=== PATIENT | male | born 1960 | race Caucasian/White ===

== ENCOUNTER 2018-06-03 15:32 | Inpatient (IN) | payer BC ==
[~2018-06-03] VITALS: Ht 167.6 cm; Wt 79.8 kg
[2018-06-04 14:45] VITALS: BP 151/92; PULSE 112; RESP 20
[2018-06-04 15:02] VITALS: PULSE 114
--- NOTE | 2018-06-04 15:51 | HP ---
Date/Time of Note Date/Time of Note DATE: 06/04/18 TIME: 15:36 Assessment/Plan VTE Prophylaxis Pharmacological prophylaxis: heparin Assessment/Plan Hospital Course 57 yo male with h/o diastolic CHF, hypertension, obesity who was admitted to [facility] 05/04/18 for acute respiratory failure 2/2 pneumonia and acute diastolic CHF. He had prolonged ICU course with intubation and requir ed tracheostomy. He has been transferred to [facility] now for swallow evaluation and consideration of possible PEG tube Acute respiratory failure: - s/p intubation and tracheostomy - Wean O2 as needed - Consult Dr Lopez who was following at [facility] Dysphagia: - NG tube feeds for now - Swallow eval - possible PEG Diastolic CHF: - Continue lasix 20 mg IV daily Hypertension: - Continue amlodipine 5 mg daily, Toprol 25 daily. Monitor and titrate BP meds Pneumonia: - Seems to have completed course of antibiotics, will hold further abx and monitor Full code Discharge plan pending HPI/ROS Admit Date/Time Admit Date/Time Jun 04, 2018 at 14:09 Hx of Present Illness 57 yo male with h/o diastolic CHF, MAC/OHS, hypertension who is transferred from [facility] for management of respiratory failure He was admitted there on 05/04 with respiratory failure requriing intubation. From documentation provided it seemst his was due to combination of congestive heart failure as well as pneumoina. He completed a course of vancomycin and aztreonam and underwent diuresis. TTE showed EF 55%. He eventually required tracheostomy. He has been stable off the venitlator since then and is now on trach collar. He has not passed swallow evaluation. He has been transferred here now for consideration of possible PEG placement and further speech therapy Seen on the floor by me after arrival. he is comfortable without complaints PMH/Family/Social Past Medical History OHS/MAC Diastolic CHF Hypertension Past Surgical History Past Surgical Hx: no surgical history Family History Significant Family History: no pertinent family hx Social History Alcohol Use: none Smoking Status: Never smoker Drug Use: none Exam/Review of Systems Vital Signs Vitals Vital Signs Date Temp Pulse Resp B/P (MAP) Pulse Ox O2 O2 Flow FiO2 Time Delivery Rate 06/04/18 114 15:02 06/04/18 99.5 20 151/92 95 Trach 10.0 14:45 (111) Collar Exam Exam Well appearing in NAD Alet, ortiented Trach in place, on trach collar O2 RRR Clear lungs Abdomen soft nt nd, obese Ext withotu edema PENG PRESSLEY MD Jun 04, 2018 15:50
[2018-06-04] MEDS ORDERED: ONDANSETRON 4 MG INJ IV PRN (16:00)
[2018-06-04] MEDS ORDERED: HYDROCODONE/APAP (5/325) TAB PO PRN (16:00)
[2018-06-04] MEDS ORDERED: NACL 0.9% 3 ML SYG IV SCH (16:00)
[2018-06-04] MEDS ORDERED: CLONIDINE 0.1 MG/24 HR PATCH TRANSDERM SCH (16:00)
[2018-06-04 16:02] VITALS: PULSE 116
[2018-06-04 18:40] VITALS: BP 148/88; PULSE 114; RESP 20
[2018-06-04 20:00] VITALS: BP 158/100; PULSE 114; PULSE 118; RESP 17
[2018-06-05] VITALS (15 sets, daily range): BP systolic 115–164; BP diastolic 64–106; PULSE 92–140; RESP 18–24
[2018-06-05] MEDS ORDERED: METOPROLOL 25 MG TAB ONE (04:08)
[2018-06-05] MEDS: METOPROLOL (XL) 25 MG TAB PO SCH (04:28)
[2018-06-05] MEDS: AMLODIPINE 5 MG TAB PO SCH (08:39)
[2018-06-05] MEDS: ENOXAPARIN 30 MG/0.3 ML SYG SC SCH (08:42)
[2018-06-05] MEDS: FUROSEMIDE 20 MG INJ IV SCH ×2 (10:38→17:36)
[2018-06-05] MEDS ORDERED: LORAZEPAM 2 MG INJ IV PRN (11:30)
[2018-06-05] MEDS: CLONIDINE 0.1 MG/24 HR PATCH TRANSDERM SCH (12:55)
--- NOTE | 2018-06-05 13:05 | PN ---
Date/Time of Note Date/Time of Note DATE: 06/05/18 TIME: 13:03 Assessment/Plan VTE Prophylaxis Risk score (from Ns)>0 risk: 3 SCD applied (from Ns): Yes Pharmacological prophylaxis: heparin Lines/Catheters IV Catheter Type (from Nrsg): PICC Line Central line still needed: Yes Urinary Cath still in place: Yes Reason Cath still needed: urinary retention Assessment/Plan Hospital Course 57 yo male with h/o diastolic CHF, hypertension, obesity who was admitted to [facility] 05/04/18 for acute respiratory failure 2/2 pneumonia and acute diastolic CHF. He had prolonged ICU course with intubation and required tracheostomy. He has been transferred to [facility] now for swallow evaluation and consideration of possible PEG tube Acute respiratory failure: - s/p intubation and tracheostomy - Wean O2 as needed - Consult Dr Lopez who was following at [facility] - Pulmonary toilet Dysphagia: - NG tube feeds for now - Swallow eval - possible PEG Diastolic CHF: - Continue lasix 20 mg IV daily Hypertension: - Continue amlodipine 5 mg daily, Toprol 25 daily, clonidine patch 0.1 mg. Monitor and titrate BP meds Agitation: - Soft limb restraitns for now to avoid him pulling out trach, ativan PRN Pneumonia: - Has completed course of antibiotics, will hold further abx and monitor Full code Discharge plan pending Result Diagram: 06/05/18 0548 06/05/18 0534 Results 24hrs Laboratory Tests Test 06/04/18 15:59 06/05/18 05:34 06/05/18 05:48 White Blood Count 5.6 7.7 # Red Blood Count 5.52 5.39 Hemoglobin 14.6 14.4 Hematocrit 47.8 47.4 Mean Corpuscular Volume 86.6 87.9 Mean Corpuscular Hemoglobin 26.4 L 26.7 L Mean Corpuscular Hemoglobin Concent 30.5 L 30.4 L Red Cell Distribution Width 14.8 H 14.6 H Platelet Count 265 255 Mean Platelet Volume 10.2 11.0 H Immature Granulocytes % 0.400 0.400 Neutrophils % 69.7 74.2 Lymphocytes % 19.4 18.1 Monocytes % 8.4 6.5 Eosinophils % 1.2 0.4 Basophils % 0.9 0.4 Nucleated Red Blood Cells % 0.0 0.0 Immature Granulocytes # 0.020 0.030 Neutrophils # 3.9 5.7 Lymphocytes # 1.1 1.4 Monocytes # 0.5 0.5 Eosinophils # 0.1 0.0 Basophils # 0.1 0.0 Nucleated Red Blood Cells # 0.0 0.0 Sodium Level 149 H 148 H Potassium Level 3.9 4.1 Chloride Level 113 H 113 H Carbon Dioxide Level 28 28 Anion Gap 8 7 Blood Urea Nitrogen 29 H 33 H Creatinine 0.69 0.71 Est Glomerular Filtrat Rate mL/min > 60 > 60 Glucose Level 120 114 Calcium Level 10.0 10.0 Total Bilirubin 0.6 Direct Bilirubin 0.00 Indirect Bilirubin 0.6 Aspartate Amino Transf (AST/SGOT) 39 Alanine Aminotransferase (ALT/SGPT) 32 Alkaline Phosphatase 101 Total Protein 9.1 H Albumin 4.0 Globulin 5.10 H Albumin/Globulin Ratio 0.78 Hemoglobin A1c 5.9 Subjective 24 Hr Interval Summary Free Text/Dictation Patient a bit agitated, was pulling on trach, restraints applied Frequent secretions, heavy Exam/Review of Systems Exam Vitals Vital Signs Date Temp Pulse Resp B/P (MAP) Pulse Ox O2 O2 Flow FiO2 Time Delivery Rate 06/05/18 120 12:17 06/05/18 97.9 24 164/106 96 T Tube 11:18 (125) 06/05/18 10.0 08:00 06/05/18 40 07:05 Intake and Output 06/04/18 06/04/18 06/05/18 1515:00 23:00 07:00 IntakeIntake Total 80 ml OutputOutput Total 275 ml 450 ml BalanceBalance -275 ml -370 ml Exam A bit agitated but redirectable Trach, NG tube in place Gurgling secretions Tachy, regular Lungs rhoncorous Abd obese, soft ntd No edema Results Results 24hrs Laboratory Tests Test 06/04/18 15:59 06/05/18 05:34 06/05/18 05:48 White Blood Count 5.6 7.7 # Red Blood Count 5.52 5.39 Hemoglobin 14.6 14.4 Hematocrit 47.8 47.4 Mean Corpuscular Volume 86.6 87.9 Mean Corpuscular Hemoglobin 26.4 L 26.7 L Mean Corpuscular Hemoglobin Concent 30.5 L 30.4 L Red Cell Distribution Width 14.8 H 14.6 H Platelet Count 265 255 Mean Platelet Volume 10.2 11.0 H Immature Granulocytes % 0.400 0.400 Neutrophils % 69.7 74.2 Lymphocytes % 19.4 18.1 Monocytes % 8.4 6.5 Eosinophils % 1.2 0.4 Basophils % 0.9 0.4 Nucleated Red Blood Cells % 0.0 0.0 Immature Granulocytes # 0.020 0.030 Neutrophils # 3.9 5.7 Lymphocytes # 1.1 1.4 Monocytes # 0.5 0.5 Eosinophils # 0.1 0.0 Basophils # 0.1 0.0 Nucleated Red Blood Cells # 0.0 0.0 Sodium Level 149 H 148 H Potassium Level 3.9 4.1 Chloride Level 113 H 113 H Carbon Dioxide Level 28 28 Anion Gap 8 7 Blood Urea Nitrogen 29 H 33 H Creatinine 0.69 0.71 Est Glomerular Filtrat Rate mL/min > 60 > 60 Glucose Level 120 114 Calcium Level 10.0 10.0 Total Bilirubin 0.6 Direct Bilirubin 0.00 Indirect Bilirubin 0.6 Aspartate Amino Transf (AST/SGOT) 39 Alanine Aminotransferase (ALT/SGPT) 32 Alkaline Phosphatase 101 Total Protein 9.1 H Albumin 4.0 Globulin 5.10 H Albumin/Globulin Ratio 0.78 Hemoglobin A1c 5.9 Medications Medication Current Medications IV Flush (NS 3 ml) 3 ml PER PROTOCOL IV ; Start 06/04/18 at 16:00 Acetaminophen/ Hydrocodone Bitart ([place] (5/325)) 2 tab Q6H PRN PO .SEVERE PAIN 7-10 Last administered on 06/05/18 04:28; Admin Dose 2 TAB; Start 06/04/18 at 16:00 Enoxaparin Sodium (Lovenox) 30 mg DAILY SC Last administered on 06/05/18at 08:42; Admin Dose 30 MG; Start 06/05/18 at 09:00 Amlodipine Besylate (Norvasc) 5 mg DAILY PO Last administered on 06/05/18at 0 8:39; Admin Dose 5 MG; Start 06/05/18 at 09:00 Metoprolol Succinate (Toprol Xl) 25 mg DAILY PO Last administered on 06/05/18at 04:28; Admin Dose 25 MG; Start 06/05/18 at 09:00 Ondansetron HCl (Zofran Inj) 4 mg Q6H PRN IV NAUSEA AND/OR VOMITING; Start 06/04/18 at 16:00 Furosemide (Lasix) 20 mg BID DIURETICS IV Last administered on 06/05/18 10:38; Admin Dose 20 MG; Start 06/05/18 at 10:00 Clonidine HCl (Catapres-Tts 1 Patch) 1 patch Q7D TRANSDERM Last administered on 06/05/18 12:55; Admin Dose 1 PATCH; Start 06/05/18 at 13:00 Lorazepam (Ativan) 1 mg Q8H PRN IV ANXIETY Last administered on 06/05/18 12:08; Admin Dose 1 MG; Start 06/05/18 at 11:30 PENG PRESSLEY MD Jun 05, 2018 13:05
--- NOTE | 2018-06-05 13:22 | CONS ---
Assessment/Plan Assessment/Plan Assessment/Plan (Daily) IMP: 1. Chronic Respiratory Failure s/p tracheotomy 2. History of Multilobar pneumonia --now with copious secretions 3. HFpEF 4. s/p AGUS 5. Encephalopathy--likely toxic-metabolic RECS: 1. Aggressive CPT/suctioning 2. Bronchodilators 3. Cont trach collar 4. ST eval; eventual PMV 5. Dietary consult 6. DVT prophylaxis Consultation Date/Type/Reason Admit Date/Time Jun 04, 2018 at 14:09 Date of Consultation: Jun 05, 2018 Type of Consult Pulm Date/Time of Note DATE: 06/05/18 TIME: 13:12 Hx of Present Illness Briefly, this is a 57-year-old male with h/o diastolic CHF, query MAC/OHS, hypertension who is transferred from [facility] for management of respiratory failure He was admitted there on 05/04 with respiratory failure though to be due to a multilobar pneumonia requring intubation. From documentation provided it seemst his was due to combination of congestive heart failure as well as pneumoina. He completed a course of vancomycin and aztreonam and underwent diuresis. TTE showed EF 55%. He eventually required tracheostomy this past Wednesday and has since transitioned to t-collar. Subjective hx not possible: pt non-verbal Past Medical History Medical History: congestive heart failure, high cholesterol, hypertension Medications Current Medications IV Flush (NS 3 ml) 3 ml PER PROTOCOL IV ; Start 06/04/18 at 16:00 Acetaminophen/ Hydrocodone Bitart ([place] (5/325)) 2 tab Q6H PRN PO .SEVERE PAIN 7-10 Last administered on 06/05/18at 04:28; Admin Dose 2 TAB; Start 06/04/18 at 16:00 Enoxaparin Sodium (Lovenox) 30 mg DAILY SC Last administered on 06/05/18at 08:42; Admin Dose 30 MG; Start 06/05/18 at 09:00 Amlodipine Besylate (Norvasc) 5 mg DAILY PO Last administered on 06/05/18at 08:39; Admin Dose 5 MG; Start 06/05/18 at 09:00 Metoprolol Succinate (Toprol Xl) 25 mg DAILY PO Last administered on 06/05/18at 04:28; Admin Dose 25 MG; Start 06/05/18 at 09:00 Ondansetron HCl (Zofran Inj) 4 mg Q6H PRN IV NAUSEA AND/OR VOMITING; Start 06/04/18 at 16:00 Furosemide (Lasix) 20 mg BID DIURETICS IV Last administered on 06/05/18at 10:38; Admin Dose 20 MG; Start 06/05/18 at 10:00 Clonidine HCl (Catapres-Tts 1 Patch) 1 patch Q7D TRANSDERM Last administered on 06/05/18at 12:55; Admin Dose 1 PATCH; Start 06/05/18 at 13:00 Lorazepam (Ativan) 1 mg Q8H PRN IV ANXIETY Last administered on 06/05/18at 12:08; Admin Dose 1 MG; Start 06/05/18 at 11:30 Allergies: Coded Allergies: Penicillins (Verified Allergy, Unknown, 06/04/18) Past Surgical History Tracheotomy Past Surgical Hx: no surgical history Family History Significant Family History: no pertinent family hx Social History Alcohol Use: none Smoking Status: Never smoker Drug Use: none Exam/Review of Systems Exam Vitals Vital Signs Date Temp Pulse Resp B/P (MAP) Pulse Ox O2 O2 Flow FiO2 Time Delivery Rate 06/05/18 120 12:17 06/05/18 97.9 24 164/106 96 T Tube 11:18 (125) 06/05/18 10.0 08:00 06/05/18 40 07:05 Intake and Output 06/04/18 06/04/18 06/05/18 1515:00 23:00 07:00 IntakeIntake Total 80 ml OutputOutput Total 275 ml 450 ml BalanceBalance -275 ml -370 ml Constitutional: non-verbal Head: normocephalic, atraumatic Eyes: nl conjunctiva, nl sclera ENMT: nl external ears & nose, mucosa pink and moist Neck: supple, non-tender, other (trach site clean ) Respiratory: congested cough, crackles/rales Cardiovascular: regular rate and rhythm Gastrointestinal: soft, nl liver, spleen, non-tender Musculoskeletal: nl extremities to inspection Extremities: normal pulses Neurological: confused, DTR's symmetric Results Result Diagram: 06/05/18 0548 06/05/18 0534 Results 24hrs Laboratory Tests Test 06/04/18 15:59 06/05/18 05:34 06/05/18 05:48 White Blood Count 5.6 7.7 # Red Blood Count 5.52 5.39 Hemoglobin 14.6 14.4 Hematocrit 47.8 47.4 Mean Corpuscular Volume 86.6 87.9 Mean Corpuscular Hemoglobin 26.4 L 26.7 L Mean Corpuscular Hemoglobin Concent 30.5 L 30.4 L Red Cell Distribution Width 14.8 H 14.6 H Platelet Count 265 255 Mean Platelet Volume 10.2 11.0 H Immature Granulocytes % 0.400 0.400 Neutrophils % 69.7 74.2 Lymphocytes % 19.4 18.1 Monocytes % 8.4 6.5 Eosinophils % 1.2 0.4 Basophils % 0.9 0.4 Nucleated Red Blood Cells % 0.0 0.0 Immature Granulocytes # 0.020 0.030 Neutrophils # 3.9 5.7 Lymphocytes # 1.1 1.4 Monocytes # 0.5 0.5 Eosinophils # 0.1 0.0 Basophils # 0.1 0.0 Nucleated Red Blood Cells # 0.0 0.0 Sodium Level 149 H 148 H Potassium Level 3.9 4.1 Chloride Level 113 H 113 H Carbon Dioxide Level 28 28 Anion Gap 8 7 Blood Urea Nitrogen 29 H 33 H Creatinine 0.69 0.71 Est Glomerular Filtrat Rate mL/min > 60 > 60 Glucose Level 120 114 Calcium Level 10.0 10.0 Total Bilirubin 0.6 Direct Bilirubin 0.00 Indirect Bilirubin 0.6 Aspartate Amino Transf (AST/SGOT) 39 Alanine Aminotransferase (ALT/SGPT) 32 Alkaline Phosphatase 101 Total Protein 9.1 H Albumin 4.0 Globulin 5.10 H Albumin/Globulin Ratio 0.78 Hemoglobin A1c 5.9 Medications Medication Current Medications IV Flush (NS 3 ml) 3 ml PER PROTOCOL IV ; Start 06/04/18 at 16:00 Acetaminophen/ Hydrocodone Bitart ([place] (5/325)) 2 tab Q6H PRN PO .SEVERE PAIN 7-10 Last administered on 06/05/18 04:28; Admin Dose 2 TAB; Start 06/04/18 at 16:00 Enoxaparin Sodium (Lovenox) 30 mg DAILY SC Last administered on 06/05/18 08:42; Admin Dose 30 MG; Start 06/05/18 at 09:00 Amlodipine Besylate (Norvasc) 5 mg DAILY PO Last administered on 06/05/18 08:39; Admin Dose 5 MG; Start 06/05/18 at 09:00 Metoprolol Succinate (Toprol Xl) 25 mg DAILY PO Last administered on 06/05/18 04:28; Admin Dose 25 MG; Start 06/05/18 at 09:00 Ondansetron HCl (Zofran Inj) 4 mg Q6H PRN IV NAUSEA AND/OR VOMITING; Start 06/04/18 at 16:00 Furosemide (Lasix) 20 mg BID DIURETICS IV Last administered on 06/05/18 10:38; Admin Dose 20 MG; Start 06/05/18 at 10:00 Clonidine HCl (Catapres-Tts 1 Patch) 1 patch Q7D TRANSDERM Last administered on 06/05/18 12:55; Admin Dose 1 PATCH; Start 06/05/18 at 13:00 Lorazepam (Ativan) 1 mg Q8H PRN IV ANXIETY Last administered on 06/05/18 12:08; Admin Dose 1 MG; Start 06/05/18 at 11:30 CHARLIE CORNELL MD Jun 05, 2018 13:22
--- NOTE | 2018-06-05 15:35 | RADRPT ---
Echocardiogram Report Patient Name: Jason KOEHLER ID: [id number] : 1960 (57y 11m)Study Date: 06/05/2018 12:48:48 PM Gender: MAccession #: [id number] Tech: Estevan Rushing [facility] Location: [facility] Ref.Physician: DAVID BURNS Height(Cm): BSA: Weight(Kg): Quality: Technically Difficult StudyOrder Physician: David Burns Account #: Procedures: Echocardiographic Report: Transthoracic echocardiogram with complete 2D, M-Mode, and doppler examination. Indications: Evaluate Left Ventricular function. Measurements: 2D/M Mode Doppler Measurement Value Normal Range Measurement Value Normal Range LVIDd 2D 3.7 [ 4.2 - 5.8 ] cm AV Peak Darion 0.9 [ 100.0 - 170.0 ] cm/sec LVIDs 2D 2.6 [ 2.5 - 4.0 ] cm AV Peak PG 4.0 [ 2.0 - 9.0 ] mmHg LVPWd 2D 1.1 [ 0.6 - 1.0 ] cm LVOT Peak Darion 0.6 [ 70.0 - 110.0 ] cm/sec IVSd 2D 1.1 [ 0.6 - 1.0 ] cm LVOT Peak PG 1.0 [ 2.0 - 6.0 ] mmHg IVS/LVPW 2D 0.9 ratio MV E Peak Darion 0.9 [ 60.0 - 130.0 ] cm/sec AoR Diam 2D 2.5 [ 2.6 - 3.4 ] cm MV A Peak Darion 0.4 [ 100.0 - 120.0 ] cm/sec LA/Ao 2D 1 ratio MV E/A 2.3 [ 0.8 - 1.5 ] ratio LA Dimen 2D 3.2 [ 3.0 - 4.0 ] cm MV Decel Time 70 [ 104 - 258 ] msec Lat E` Darion 0.1 [ 10.0 - 15.0 ] cm/sec Med E` Darion 0.1 cm/sec MV E/A 2.3 [ 0.8 - 1.5 ] ratio Findings: Left Ventricle: Normal left ventricular systolic function. Normal left ventricular cavity size. Normal left ventricular wall thickness. Mild concentric left ventricular hypertrophy. Ejection fraction is visually estimated at 55 %. Right Ventricle: Normal right ventricular size. Normal right ventricular systolic function. Left Atrium: The left atrium is normal in size. Right Atrium: The right atrium is normal in size. Mitral Valve: Normal appearance of the mitral valve. Trace mitral regurgitation. Aortic Valve: Normal appearance of the aortic valve. No aortic regurgitation. Tricuspid Valve: Normal appearance of the tricuspid valve. Unable to obtain RVSP due to minimal presence of tricuspid regurgitation. Pulmonic Valve: Normal pulmonic valve appearance. No evidence of pulmonic regurgitation. Pericardium: Normal pericardium with no significant pericardial effusion. Aorta: Normal aortic root. IVC: Normal size and normal respiratory collapse consistent with normal right atrial pressure. Conclusions: Normal left ventricular systolic function. Normal left ventricular cavity size. Normal left ventricular wall thickness. Mild concentric left ventricular hypertrophy. Ejection fraction is visually estimated at 55 %. Normal appearance of the mitral valve. Trace mitral regurgitation. Normal appearance of the tricuspid valve. Unable to obtain RVSP due to minimal presence of tricuspid regurgitation. Electronically Signed By: Can Gómez 2018-06-05 15:35:15 PST
[2018-06-06] VITALS (17 sets, daily range): BP systolic 101–148; BP diastolic 59–100; PULSE 87–124; RESP 18–21
[2018-06-06] MEDS: FUROSEMIDE 20 MG INJ IV SCH ×2 (06:11→18:27)
[2018-06-06] MEDS: AMLODIPINE 5 MG TAB PO SCH (08:27)
[2018-06-06] MEDS: METOPROLOL (XL) 25 MG TAB PO SCH (08:27)
[2018-06-06] MEDS: ENOXAPARIN 30 MG/0.3 ML SYG SC SCH (08:32)
--- NOTE | 2018-06-06 15:13 | PN ---
Date/Time of Note Date/Time of Note DATE: 06/06/18 TIME: 15:12 Assessment/Plan VTE Prophylaxis Risk score (from Ns)>0 risk: 3 Pharmacological prophylaxis: LMWH Lines/Catheters Urinary Cath still in place: No Assessment/Plan Hospital Course 57 yo male with h/o diastolic CHF, hypertension, obesity who was admitted to [facility] 05/04/18 for acute respiratory failure 2/2 pneumonia and acute diastolic CHF. He had prolonged ICU course with intubation and required tracheostomy. He has been transferred to [facility] now for swallow evaluation and consideration of possible PEG tube Acute respiratory failure: - s/p intubation and tracheostomy - Wean O2 as needed -Pulmonary consultation appreciated - Pulmonary toilet Dysphagia: - NG tube feeds for now - Swallow eval - possible PEG in the coming days Diastolic CHF: - Continue lasix 20 mg IV daily Hypertension: - Continue amlodipine 5 mg daily, Toprol 25 daily, clonidine patch 0.1 mg. Monitor and titrate BP meds Agitation: - Soft limb restraitns for now to avoid him pulling out trach atjason PRN Pneumonia: - Has completed course of antibiotics, will hold further abx and monitor Prophylaxis: Lovenox Result Diagram: 06/06/18 0532 06/06/18 0532 Results 24hrs Laboratory Tests Test 06/06/18 05:00 06/06/18 05:32 Blood Gas Specimen Source Blood arterial Arterial Blood Date Drawn 06/06/2018 5:00:55 AM Arterial Blood pH (Temp corrected) 7.439 Arterial Blood pCO2 (Temp correct) 42.3 Arterial Blood pO2 (Temp corrected) 99.1 Arterial Blood HCO3 28.0 H Arterial Blood Base Excess 3.4 H Arterial Blood Oxygen Saturation 97.1 Maikol Test ACCEPTAB Arterial Blood Gas Puncture Site Right Radial Arterial Blood Carboxyhemoglobin 1.1 Arterial Blood Methemoglobin 0.5 Blood Gas A-a O2 Differential 137.5 H Oxyhemoglobin Percent 95.5 Blood Gas Temperature 37.0 Blood Gas Modality TRACH COLLAR FiO2 40.0 Blood Gas Notified Whom MA Blood Gas Notified Time 06/06/2018 5:15:31 AM White Blood Count 9.7 # Red Blood Count 5.77 Hemoglobin 15.6 Hematocrit 50.6 Mean Corpuscular Volume 87.7 Mean Corpuscular Hemoglobin 27.0 L Mean Corpuscular Hemoglobin Concent 30.8 L Red Cell Distribution Width 15.0 H Platelet Count 284 Mean Platelet Volume 11.1 H Immature Granulocytes % 0.300 Neutrophils % 68.6 Lymphocytes % 23.5 Monocytes % 6.9 Eosinophils % 0.2 Basophils % 0.5 Nucleated Red Blood Cells % 0.0 Immature Granulocytes # 0.030 Neutrophils # 6.6 Lymphocytes # 2.3 Monocytes # 0.7 Eosinophils # 0.0 Basophils # 0.1 Nucleated Red Blood Cells # 0.0 Sodium Level 151 H Potassium Level 3.9 Chloride Level 109 Carbon Dioxide Level 32 H Anion Gap 10 Blood Urea Nitrogen 47 #H Creatinine 0.88 Est Glomerular Filtrat Rate mL/min > 60 Glucose Level 128 Calcium Level 10.2 Subjective 24 Hr Interval Summary Constitutional: disoriented Exam/Review of Systems Exam Vitals Vital Signs Date Temp Pulse Resp B/P (MAP) Pulse Ox O2 O2 Flow FiO2 Time Delivery Rate 06/06/18 101.2 114 20 112/79 96 Trach 13:53 (90) Collar 06/06/18 10.0 40 12:53 Intake and Output 06/05/18 06/05/18 06/06/18 1414:59 22:59 06:59 IntakeIntake Total 540 ml 590 ml OutputOutput Total 1400 ml BalanceBalance -860 ml 590 ml Psych: confusion Respiratory: clear to auscultation Cardiovascular: regular rate and rhythm Gastrointestinal: soft; No distended Musculoskeletal: nl extremities to inspection Results Results 24hrs Laboratory Tests Test 06/06/18 05:00 06/06/18 05:32 Blood Gas Specimen Source Blood arterial Arterial Blood Date Drawn 06/06/2018 5:00:55 AM Arterial Blood pH (Temp corrected) 7.439 Arterial Blood pCO2 (Temp correct) 42.3 Arterial Blood pO2 (Temp corrected) 99.1 Arterial Blood HCO3 28.0 H Arterial Blood Base Excess 3.4 H Arterial Blood Oxygen Saturation 97.1 Maikol Test ACCEPTAB Arterial Blood Gas Puncture Site Right Radial Arterial Blood Carboxyhemoglobin 1.1 Arterial Blood Methemoglobin 0.5 Blood Gas A-a O2 Differential 137.5 H Oxyhemoglobin Percent 95.5 Blood Gas Temperature 37.0 Blood Gas Modality TRACH COLLAR FiO2 40.0 Blood Gas Notified Whom MA Blood Gas Notified Time 06/06/2018 5:15:31 AM White Blood Count 9.7 # Red Blood Count 5.77 Hemoglobin 15.6 Hematocrit 50.6 Mean Corpuscular Volume 87.7 Mean Corpuscular Hemoglobin 27.0 L Mean Corpuscular Hemoglobin Concent 30.8 L Red Cell Distribution Width 15.0 H Platelet Count 284 Mean Platelet Volume 11.1 H Immature Granulocytes % 0.300 Neutrophils % 68.6 Lymphocytes % 23.5 Monocytes % 6.9 Eosinophils % 0.2 Basophils % 0.5 Nucleated Red Blood Cells % 0.0 Immature Granulocytes # 0.030 Neutrophils # 6.6 Lymphocytes # 2.3 Monocytes # 0.7 Eosinophils # 0.0 Basophils # 0.1 Nucleated Red Blood Cells # 0.0 Sodium Level 151 H Potassium Level 3.9 Chloride Level 109 Carbon Dioxide Level 32 H Anion Gap 10 Blood Urea Nitrogen 47 #H Creatinine 0.88 Est Glomerular Filtrat Rate mL/min > 60 Glucose Level 128 Calcium Level 10.2 Medications Medication Current Medications IV Flush (NS 3 ml) 3 ml PER PROTOCOL IV ; Start 06/04/18 at 16:00 Acetaminophen/ Hydrocodone Bitart ([place] (5/325)) 2 tab Q6H PRN PO .SEVERE PAIN 7-10 Last administered on 06/05/18at 04:28; Admin Dose 2 TAB; Start 06/04/18 at 16:00 Enoxaparin Sodium (Lovenox) 30 mg DAILY SC Last administered on 06/06/18at 0 8:32; Admin Dose 30 MG; Start 06/05/18 at 09:00 Amlodipine Besylate (Norvasc) 5 mg DAILY PO Last administered on 06/06/18 08:27; Admin Dose 5 MG; Start 06/05/18 at 09:00 Metoprolol Succinate (Toprol Xl) 25 mg DAILY PO Last administered on 06/06/18at 08:27; Admin Dose 25 MG; Start 06/05/18 at 09:00 Ondansetron HCl (Zofran Inj) 4 mg Q6H PRN IV NAUSEA AND/OR VOMITING; Start 06/04/18 at 16:00 Furosemide (Lasix) 20 mg BID DIURETICS IV Last administered on 06/06/18 06:11; Admin Dose 20 MG; Start 06/05/18 at 10:00 Clonidine HCl (Catapres-Tts 1 Patch) 1 patch Q7D TRANSDERM Last administered on 06/05/18at 12:55; Admin Dose 1 PATCH; Start 06/05/18 at 13:00 Lorazepam (Ativan) 1 mg Q8H PRN IV ANXIETY Last administered on 06/05/18at 12:08; Admin Dose 1 MG; Start 06/05/18 at 11:30 Levalbuterol (Xopenex Neb) 0.63 mg Q8H RESP THERAPY HHN ; Start 06/06/18 at 21:00 Acetaminophen (Tylenol Tab) 650 mg Q6H PRN PO MILD PAIN(1-3)OR ELEVATED TEMP; Start 06/06/18 at 14:50 LAUREANO STEARNS Jun 06, 2018 15:13
--- NOTE | 2018-06-06 15:43 | CONS ---
Consult Date/Type/Reason Admit Date/Time Jun 04, 2018 at 14:09 Initial Consult Date 06/05/18 Type of Consult Pulmonary Date/Time of Note DATE: 06/06/18 TIME: 15:30 Subjective Comfortable this morning. Moderate secretions requiring occasional pulmonary toilet. No respiratory distress at present Objective Vital Signs Date Temp Pulse Resp B/P (MAP) Pulse Ox O2 O2 Flow FiO2 Time Delivery Rate 06/06/18 101.2 114 20 112/79 96 Trach 13:53 (90) Collar 06/06/18 10.0 40 12:53 Intake and Output 06/05/18 06/05/18 06/06/18 1515:00 23:00 07:00 IntakeIntake Total 540 ml 590 ml OutputOutput Total 1400 ml BalanceBalance -860 ml 590 ml Exam GENERAL: Chronically ill-appearing gentleman comfortable at rest VITAL SIGNS: per chart NECK: Supple. No JVD or lymphadenopathy. Tracheostomy in place sutures in place CARDIAC EXAM: S1, S2. No added sounds or murmurs. CHEST: clear bilaterally, No added sounds, rales or wheezes ABDOMEN: Soft, nontender. No guarding or rebound. EXTREMITIES: No cyanosis, clubbing or edema. NEUROLOGIC: Generalized weakness. No focal deficits. Vent Setting Fraction of Inspired Oxygen pe: 40 Results/Medications Result Diagram: 06/06/1832 06/06/18 0532 Results 24 hrs Laboratory Tests Test 06/06/18 05:00 06/06/18 05:32 Blood Gas Specimen Source Blood arterial Arterial Blood Date Drawn 06/06/2018 5:00:55 AM Arterial Blood pH (Temp corrected) 7.439 Arterial Blood pCO2 (Temp correct) 42.3 Arterial Blood pO2 (Temp corrected) 99.1 Arterial Blood HCO3 28.0 H Arterial Blood Base Excess 3.4 H Arterial Blood Oxygen Saturation 97.1 Maikol Test ACCEPTAB Arterial Blood Gas Puncture Site Right Radial Arterial Blood Carboxyhemoglobin 1.1 Arterial Blood Methemoglobin 0.5 Blood Gas A-a O2 Differential 137.5 H Oxyhemoglobin Percent 95.5 Blood Gas Temperature 37.0 Blood Gas Modality TRACH COLLAR FiO2 40.0 Blood Gas Notified Whom MA Blood Gas Notified Time 06/06/2018 5:15:31 AM White Blood Count 9.7 # Red Blood Count 5.77 Hemoglobin 15.6 Hematocrit 50.6 Mean Corpuscular Volume 87.7 Mean Corpuscular Hemoglobin 27.0 L Mean Corpuscular Hemoglobin Concent 30.8 L Red Cell Distribution Width 15.0 H Platelet Count 284 Mean Platelet Volume 11.1 H Immature Granulocytes % 0.300 Neutrophils % 68.6 Lymphocytes % 23.5 Monocytes % 6.9 Eosinophils % 0.2 Basophils % 0.5 Nucleated Red Blood Cells % 0.0 Immature Granulocytes # 0.030 Neutrophils # 6.6 Lymphocytes # 2.3 Monocytes # 0.7 Eosinophils # 0.0 Basophils # 0.1 Nucleated Red Blood Cells # 0.0 Sodium Level 151 H Potassium Level 3.9 Chloride Level 109 Carbon Dioxide Level 32 H Anion Gap 10 Blood Urea Nitrogen 47 #H Creatinine 0.88 Est Glomerular Filtrat Rate mL/min > 60 Glucose Level 128 Calcium Level 10.2 Medications Current Medications IV Flush (NS 3 ml) 3 ml PER PROTOCOL IV ; Start 06/04/18 at 16:00 Acetaminophen/ Hydrocodone Bitart ([place] (5/325)) 2 tab Q6H PRN PO .SEVERE PAIN 7-10 Last administered on 06/05/18at 04:28; Admin Dose 2 TAB; Start 06/04/18 at 16:00 Enoxaparin Sodium (Lovenox) 30 mg DAILY SC Last administered on 06/06/18at 08:32; Admin Dose 30 MG; Start 06/05/18 at 09:00 Amlodipine Besylate (Norvasc) 5 mg DAILY PO Last administered on 06/06/18 08:27; Admin Dose 5 MG; Start 06/05/18 at 09:00 Metoprolol Succinate (Toprol Xl) 25 mg DAILY PO Last administered on 06/06/18 08:27; Admin Dose 25 MG; Start 06/05/18 at 09:00 Ondansetron HCl (Zofran Inj) 4 mg Q6H PRN IV NAUSEA AND/OR VOMITING; Start 06/04/18 at 16:00 Furosemide (Lasix) 20 mg BID DIURETICS IV Last administered on 06/06/18at 06:11; Admin Dose 20 MG; Start 06/05/18 at 10:00 Clonidine HCl (Catapres-Tts 1 Patch) 1 patch Q7D TRANSDERM Last administered on 06/05/18at 12:55; Admin Dose 1 PATCH; Start 06/05/18 at 13:00 Lorazepam (Ativan) 1 mg Q8H PRN IV ANXIETY Last administered on 06/05/18at 12:08; Admin Dose 1 MG; Start 06/05/18 at 11:30 Levalbuterol (Xopenex Neb) 0.63 mg Q8H RESP THERAPY HHN ; Start 06/06/18 at 21:00 Acetaminophen (Tylenol Tab) 650 mg Q6H PRN PO MILD PAIN(1-3)OR ELEVATED TEMP; Start 06/06/18 at 14:50 Dextrose 1,000 ml @ 50 mls/hr Q20H IV ; Start 06/06/18 at 15:30; Status UNV Assessment/Plan Hospital Course (Demo Recall) IMP: 1. Chronic Respiratory Failure s/p tracheotomy 2. History of Multilobar pneumonia --now with copious secretions 3. HFpEF 4. s/p AGUS 5. Encephalopathy--likely toxic-metabolic RECS: 1. Aggressive CPT/suctioning 2. Bronchodilators 3. Cont trach collar 4. ST eval; eventual PMV 5. Dietary consult 6. DVT prophylaxis 7. DC trach sutures [facility] HARMON MD, [facility] Jun 06, 2018 15:40
[2018-06-06] MEDS: DEXTROSE 5% 1,000 ML IV SCH (15:54)
[2018-06-06] MEDS ORDERED: LEVALBUTEROL (NEB) 0.63 MG/3 ML AMP HHN SCH (21:00)
[2018-06-06] MEDS: LEVALBUTEROL (NEB) 0.63 MG/3 ML AMP HHN SCH (23:56)
[2018-06-07] VITALS (16 sets, daily range): BP systolic 106–129; BP diastolic 64–79; PULSE 92–122; RESP 18–20
[2018-06-07] MEDS: ACETAMINOPHEN 325 MG TAB PO PRN (05:42)
[2018-06-07] MEDS: FUROSEMIDE 20 MG INJ IV SCH ×2 (05:43→18:00)
[2018-06-07] MEDS: LEVALBUTEROL (NEB) 0.63 MG/3 ML AMP HHN SCH ×2 (07:41→16:21)
[2018-06-07] MEDS: AMLODIPINE 5 MG TAB PO SCH (08:42)
[2018-06-07] MEDS: METOPROLOL (XL) 25 MG TAB PO SCH (08:42)
[2018-06-07] MEDS: ENOXAPARIN 30 MG/0.3 ML SYG SC SCH (08:43)
[2018-06-07] MEDS: DEXTROSE 5% 1,000 ML IV SCH (11:30)
--- NOTE | 2018-06-07 12:32 | CONS ---
Consult Date/Type/Reason Admit Date/Time Jun 04, 2018 at 14:09 Initial Consult Date 06/05/18 Type of Consult Pulmonary Date/Time of Note DATE: 06/07/18 TIME: 12:31 Subjective Comfortable no respiratory distress this morning. Nasogastric tube in place. Objective Vital Signs Date Temp Pulse Resp B/P (MAP) Pulse Ox O2 O2 Flow FiO2 Time Delivery Rate 06/07/18 99.4 108 20 118/72 97 Trach 11:29 (87) Collar 06/07/18 10.0 08:00 06/07/18 40 07:46 Intake and Output 06/06/18 06/06/18 06/07/18 1515:00 23:00 07:00 IntakeIntake Total 540 ml 1616 ml BalanceBalance 540 ml 1616 ml Exam GENERAL: VITAL SIGNS: per chart NECK: Supple. No JVD or lymphadenopathy. CARDIAC EXAM: S1, S2. No added sounds or murmurs. CHEST: clear bilaterally, No added sounds, rales or wheezes ABDOMEN: Soft, nontender. No guarding or rebound. EXTREMITIES: No cyanosis, clubbing or edema. NEUROLOGIC: Generalized weakness. No focal deficits. Vent Setting Fraction of Inspired Oxygen pe: 40 Results/Medications Result Diagram: 06/06/18 0532 06/07/18 0621 Results 24 hrs Laboratory Tests Test 06/07/18 06:21 Sodium Level 143 Potassium Level 3.4 L Chloride Level 105 Carbon Dioxide Level 31 Anion Gap 7 Blood Urea Nitrogen 54 H Creatinine 0.92 Est Glomerular Filtrat Rate mL/min > 60 Glucose Level 316 #H Calcium Level 9.1 Phosphorus Level 4.2 Magnesium Level 2.3 Medications Current Medications IV Flush (NS 3 ml) 3 ml PER PROTOCOL IV ; Start 06/04/18 at 16:00 Acetaminophen/ Hydrocodone Bitart ([place] (5/325)) 2 tab Q6H PRN PO .SEVERE PAIN 7-10 Last administered on 06/05/18at 04:28; Admin Dose 2 TAB; Start 06/04/18 at 16:00 Enoxaparin Sodium (Lovenox) 30 mg DAILY SC Last administered on 06/07/18at 08:4 3; Admin Dose 30 MG; Start 06/05/18 at 09:00 Amlodipine Besylate (Norvasc) 5 mg DAILY PO Last administered on 06/07/18at 08:42; Admin Dose 5 MG; Start 06/05/18 at 09:00 Metoprolol Succinate (Toprol Xl) 25 mg DAILY PO Last administered on 06/07/18 08:42; Admin Dose 25 MG; Start 06/05/18 at 09:00 Ondansetron HCl (Zofran Inj) 4 mg Q6H PRN IV NAUSEA AND/OR VOMITING; Start 06/04/18 at 16:00 Furosemide (Lasix) 20 mg BID DIURETICS IV Last administered on 06/07/18 05:43; Admin Dose 20 MG; Start 06/05/18 at 10:00 Clonidine HCl (Catapres-Tts 1 Patch) 1 patch Q7D TRANSDERM Last administered on 06/05/18 12:55; Admin Dose 1 PATCH; Start 06/05/18 at 13:00 Lorazepam (Ativan) 1 mg Q8H PRN IV ANXIETY Last administered on 06/05/18 12:08; Admin Dose 1 MG; Start 06/05/18 at 11:30 Acetaminophen (Tylenol Tab) 650 mg Q6H PRN PO MILD PAIN(1-3)OR ELEVATED TEMP Last administered on 06/07/18 05:42; Admin Dose 650 MG; Start 06/06/18 at 14:50 Levalbuterol (Xopenex Neb) 0.63 mg Q8H RESP THERAPY HHN Last administered on 06/07/18 07:41; Admin Dose 0.63 MG; Start 06/07/18 at 00:00 Assessment/Plan Hospital Course (Demo Recall) IMP: 1. Chronic Respiratory Failure s/p tracheotomy 2. History of Multilobar pneumonia --now with copious secretions 3. HFpEF 4. s/p AGUS 5. Encephalopathy--likely toxic-metabolic RECS: 1. Aggressive CPT/suctioning 2. Bronchodilators 3. Cont trach collar 4. ST eval; eventual PMV 5. Dietary consult 6. DVT prophylaxis 7. Will likely need PEG tube placement would proceed with PEG tube placement and consider [facility] to [facility] Jun 07, 2018 12:32
[2018-06-07] MEDS ORDERED: SCOPOLAMINE 1.5 MG PATCH TRANSDERM ONE (14:00)
--- NOTE | 2018-06-07 14:52 | PN ---
Date/Time of Note Date/Time of Note DATE: 06/07/18 TIME: 14:51 Assessment/Plan VTE Prophylaxis Risk score (from Ns)>0 risk: 5 SCD applied (from Ns): Yes Pharmacological prophylaxis: LMWH Lines/Catheters Urinary Cath still in place: No Assessment/Plan Hospital Course 57 yo male with h/o diastolic CHF, hypertension, obesity who was admitted to [facility] 05/04/18 for acute respiratory failure 2/2 pneumonia and acute diastolic CHF. He had prolonged ICU course with intubation and required tracheostomy. He has been transferred to [facility] now for swallow evaluation and consideration of possible PEG tube Acute respiratory failure: - s/p intubation and tracheostomy - Wean O2 as needed -Pulmonary consultation appreciated - Pulmonary toilet Dysphagia: - NG tube feeds for now - Swallow eval - GI consult obtained for PEG tube placement Diastolic CHF: - Continue lasix 20 mg IV daily Hypertension: - Continue amlodipine 5 mg daily, Toprol 25 daily, clonidine patch 0.1 mg. Monitor and titrate BP meds Agitation: Improved - Ativan PRN Pneumonia: - Has completed course of antibiotics, will hold further abx and monitor Prophylaxis: Lovenox Result Diagram: 06/06/18 0532 06/07/18 0621 Results 24hrs Laboratory Tests Test 06/07/18 06:21 Sodium Level 143 Potassium Level 3.4 L Chloride Level 105 Carbon Dioxide Level 31 Anion Gap 7 Blood Urea Nitrogen 54 H Creatinine 0.92 Est Glomerular Filtrat Rate mL/min > 60 Glucose Level 316 #H Calcium Level 9.1 Phosphorus Level 4.2 Magnesium Level 2.3 Subjective 24 Hr Interval Summary Constitutional: no complaints Exam/Review of Systems Exam Vitals Vital Signs Date Temp Pulse Resp B/P (MAP) Pulse Ox O2 O2 Flow FiO2 Time Delivery Rate 06/07/18 98.2 108 20 108/69 100 Trach 13:56 (82) Collar 06/07/18 8.0 40 12:30 Intake and Output 06/06/18 06/06/18 06/07/18 1414:59 22:59 06:59 IntakeIntake Total 540 ml 1616 ml BalanceBalance 540 ml 1616 ml Constitutional: alert, oriented Respiratory: clear to auscultation Cardiovascular: regular rate and rhythm Gastrointestinal: soft; No distended Musculoskeletal: nl extremities to inspection Results Results 24hrs Laboratory Tests Test 06/07/18 06:21 Sodium Level 143 Potassium Level 3.4 L Chloride Level 105 Carbon Dioxide Level 31 Anion Gap 7 Blood Urea Nitrogen 54 H Creatinine 0.92 Est Glomerular Filtrat Rate mL/min > 60 Glucose Level 316 #H Calcium Level 9.1 Phosphorus Level 4.2 Magnesium Level 2.3 Medications Medication Current Medications IV Flush (NS 3 ml) 3 ml PER PROTOCOL IV ; Start 06/04/18 at 16:00 Acetaminophen/ Hydrocodone Bitart ([place] (5/325)) 2 tab Q6H PRN PO .SEVERE PAIN 7-10 Last administered on 06/05/18 04:28; Admin Dose 2 TAB; Start 06/04/18 at 16:00 Enoxaparin Sodium (Lovenox) 30 mg DAILY SC Last administered on 06/07/18 08:43; Admin Dose 30 MG; Start 06/05/18 at 09:00 Amlodipine Besylate (Norvasc) 5 mg DAILY PO Last administered on 06/07/18 08: 42; Admin Dose 5 MG; Start 06/05/18 at 09:00 Metoprolol Succinate (Toprol Xl) 25 mg DAILY PO Last administered on 06/07/18 08:42; Admin Dose 25 MG; Start 06/05/18 at 09:00 Ondansetron HCl (Zofran Inj) 4 mg Q6H PRN IV NAUSEA AND/OR VOMITING; Start 06/04/18 at 16:00 Furosemide (Lasix) 20 mg BID DIURETICS IV Last administered on 06/07/18 05:43; Admin Dose 20 MG; Start 06/05/18 at 10:00 Clonidine HCl (Catapres-Tts 1 Patch) 1 patch Q7D TRANSDERM Last administered on 06/05/18 12:55; Admin Dose 1 PATCH; Start 06/05/18 at 13:00 Lorazepam (Ativan) 1 mg Q8H PRN IV ANXIETY Last administered on 06/05/18 12:08; Admin Dose 1 MG; Start 06/05/18 at 11:30 Acetaminophen (Tylenol Tab) 650 mg Q6H PRN PO MILD PAIN(1-3)OR ELEVATED TEMP Last administered on 06/07/18 05:42; Admin Dose 650 MG; Start 06/06/18 at 14:50 Levalbuterol (Xopenex Neb) 0.63 mg Q8H RESP THERAPY HHN Last administered on 06/07/18at 07:41; Admin Dose 0.63 MG; Start 06/07/18 at 00:00 LAUREANO STEARNS Jun 07, 2018 14:52
[2018-06-07] MEDS ORDERED: POTASSIUM CHLORIDE 20 MEQ POWDER FOR ORAL SOLN NGT ONE (15:30)
--- NOTE | 2018-06-07 16:55 | CONS ---
Assessment/Plan Assessment/Plan Assessment/Plan (Daily) Summary Assessment and Plan: Assessment: Dysphagia - evaluated by ST- failed bedside swallow eval Acute respiratory failure s/p tracheostomy- not on MV -Increased secretions -Pulmonary following Recent PNA- s/p antibiotic treatment Diastolic CHF- EF 55% HTN Plan: NPO after midnight PEG tomorrow- will check INR in am Endoscopy - risks/benefits/alternatives/indications of procedure and sedati on/anesthesia discussed with patient's family who states understanding and gives informed consent to proceed. Patient seen in collaboration with Dr. Haynes CC: DANIELA HAYNES MD ; Consultation Date/Type/Reason Admit Date/Time Jun 04, 2018 at 14:09 Date of Consultation: Jun 07, 2018 Type of Consult GI Reason for Consultation Dysphagia requiring PEG placement Date/Time of Note DATE: 06/07/18 TIME: 16:34 Hx of Present Illness This is a 57 year old male with PMH of CHF. He was initially hospitalized at [facility] for PNA and CHF exacerbation leading to respiratory failure and intubation. During his stay at [facility], he was treated with ABX and diuretics, however, they were unable to wean him off the ventilator there fore requiring tracheostomy. Pt was transferred to [facility] for ST therapy and possible PEG placement. ST evaluated pt who failed bedside swallow evaluation. GI has been consulted for PEG placement. At time of evaluation pt is alert and confused trach collar in place with notable secretions. I discussed procedure with patient family who is currently at bedside. I reviewed risks/benefits of sedation and procedure. Family verbalized understanding and are agreeable to procedure. Review of Systems: A 12 system, review was conducted and is negative except as noted in the HPI or here. Past Medical History Medical History: congestive heart failure, high cholesterol, hypertension Medications Current Medications IV Flush (NS 3 ml) 3 ml PER PROTOCOL IV ; Start 06/04/18 at 16:00 Acetaminophen/ Hydrocodone Bitart ([place] (5/325)) 2 tab Q6H PRN PO .SEVERE PAIN 7-10 Last administered on 06/05/18at 04:28; Admin Dose 2 TAB; Start 06/04/18 at 16:00 Enoxaparin Sodium (Lovenox) 30 mg DAILY SC Last administered on 06/07/18at 08:43; Admin Dose 30 MG; Start 06/05/18 at 09:00 Amlodipine Besylate (Norvasc) 5 mg DAILY PO Last administered on 06/07/18 08:42; Admin Dose 5 MG; Start 06/05/18 at 09:00 Metoprolol Succinate (Toprol Xl) 25 mg DAILY PO Last administered on 06/07/18 08:42; Admin Dose 25 MG; Start 06/05/18 at 09:00 Ondansetron HCl (Zofran Inj) 4 mg Q6H PRN IV NAUSEA AND/OR VOMITING; Start 06/04/18 at 16:00 Furosemide (Lasix) 20 mg BID DIURETICS IV Last administered on 06/07/18 05:43; Admin Dose 20 MG; Start 06/05/18 at 10:00 Clonidine HCl (Catapres-Tts 1 Patch) 1 patch Q7D TRANSDERM Last administered on 06/05/18 12:55; Admin Dose 1 PATCH; Start 06/05/18 at 13:00 Lorazepam (Ativan) 1 mg Q8H PRN IV ANXIETY Last administered on 06/05/18 12:08; Admin Dose 1 MG; Start 06/05/18 at 11:30 Acetaminophen (Tylenol Tab) 650 mg Q6H PRN PO MILD PAIN(1-3)OR ELEVATED TEMP Last administered on 06/07/18 05:42; Admin Dose 650 MG; Start 06/06/18 at 14:50 Levalbuterol (Xopenex Neb) 0.63 mg Q8H RESP THERAPY HHN Last administered on 06/07/18 16:21; Admin Dose 0.63 MG; Start 06/07/18 at 00:00 Allergies: Coded Allergies: Penicillins (Verified Allergy, Unknown, 06/04/18) Past Surgical History Past Surgical Hx: no surgical history Social History Alcohol Use: none Smoking Status: Never smoker Drug Use: none Exam/Review of Systems Exam Vitals Vital Signs Date Temp Pulse Resp B/P (MAP) Pulse Ox O2 O2 Flow FiO2 Time Delivery Rate 06/07/18 18 95 Aerosol 8.0 40 16:21 06/07/18 98.2 108 108/69 13:56 (82) Intake and Output 06/06/18 06/06/18 06/07/18 1515:00 23:00 07:00 IntakeIntake Total 540 ml 1616 ml BalanceBalance 540 ml 1616 ml PHYSICAL EXAMINATION: GENERAL: Well developed, well nourished, alert and confused, tracheostomy in place not on MV, restraints in place SKIN: No lesions, no stigmata chronic liver disease, no evidence of bleeding diathesis EYES: Pupils equal reactive to light, no discharge. EARS/NOSE AND THROAT: Ears normal, nose normal, NGT in place NECK: Supple, no masses CHEST: Inspection within normal limits. CARDIOVASCULAR: Heart: Regular rate and rhythm. RESPIRATORY: Lungs clear to auscultation GASTROINTESTINAL AND LIVER: Abdomen: Soft, non tenderness, non-distended, no hernias, no masses, no organomegaly, no ascites, no guarding, no rebound tenderness, normoactive bowel sounds. Rectal: Deferred. Results Result Diagram: 06/06/18 0532 06/07/18 0621 Results 24hrs Laboratory Tests Test 06/07/18 06:21 Sodium Level 143 Potassium Level 3.4 L Chloride Level 105 Carbon Dioxide Level 31 Anion Gap 7 Blood Urea Nitrogen 54 H Creatinine 0.92 Est Glomerular Filtrat Rate mL/min > 60 Glucose Level 316 #H Calcium Level 9.1 Phosphorus Level 4.2 Magnesium Level 2.3 Medications Medication Current Medications IV Flush (NS 3 ml) 3 ml PER PROTOCOL IV ; Start 06/04/18 at 16:00 Acetaminophen/ Hydrocodone Bitart ([place] (5/325)) 2 tab Q6H PRN PO .SEVERE PAIN 7-10 Last administered on 06/05/18at 04:28; Admin Dose 2 TAB; Start 06/04/18 at 16:00 Enoxaparin Sodium (Lovenox) 30 mg DAILY SC Last administered on 06/07/18at 08:43; Admin Dose 30 MG; Start 06/05/18 at 09:00 Amlodipine Besylate (Norvasc) 5 mg DAILY PO Last administered on 06/07/18at 08:42; Admin Dose 5 MG; Start 06/05/18 at 09:00 Metoprolol Succinate (Toprol Xl) 25 mg DAILY PO Last administered on 06/07/18at 08:42; Admin Dose 25 MG; Start 06/05/18 at 09:00 Ondansetron HCl (Zofran Inj) 4 mg Q6H PRN IV NAUSEA AND/OR VOMITING; Start 06/04/18 at 16:00 Furosemide (Lasix) 20 mg BID DIURETICS IV Last administered on 06/07/18 05:43; Admin Dose 20 MG; Start 06/05/18 at 10:00 Clonidine HCl (Catapres-Tts 1 Patch) 1 patch Q7D TRANSDERM Last administered on 06/05/18 12:55; Admin Dose 1 PATCH; Start 06/05/18 at 13:00 Lorazepam (Ativan) 1 mg Q8H PRN IV ANXIETY Last administered on 06/05/18 12:08; Admin Dose 1 MG; Start 06/05/18 at 11:30 Acetaminophen (Tylenol Tab) 650 mg Q6H PRN PO MILD PAIN(1-3)OR ELEVATED TEMP Last administered on 06/07/18 05:42; Admin Dose 650 MG; Start 06/06/18 at 14:50 Levalbuterol (Xopenex Neb) 0.63 mg Q8H RESP THERAPY HHN Last administered on 06/07/18 16:21; Admin Dose 0.63 MG; Start 06/07/18 at 00:00 ELYSE FABIAN Jun 07, 2018 16:49
--- NOTE | 2018-06-07 19:36 | CONS ---
Assessment/Plan Assessment/Plan Assessment/Plan 57 yo Male with 1) Acute respiratory failure, S/p trach 2) CHF- significantly improved 3) Hx of B/l PNA S/p Treatment 4) Hx of AGUS with Recovery 5) Pre Renal Azotemia Will hold diuretic Rx at this time CXR Reviewed Repeat labs in am Strict Is and Os monitor uo Monitor electrolytes Free H20 Supplementation after gtube placement cont current enteral nutrition and free H20 as per GI Will order PT eval and treatment Consultation Date/Type/Reason Admit Date/Time Jun 04, 2018 at 14:09 Type of Consult Nephrology Reason for Consultation Prerenal Azotemia, Hx of AGUS Requesting Provider: LAUREANO STEARNS Date/Time of Note DATE: 06/07/18 TIME: 19:32 Hx of Present Illness 57 yo Male with Constitutional: requiring O2 Past Medical History Medical History Nephrology: congestive heart failure, hypertension, renal disease Medications Current Medications IV Flush (NS 3 ml) 3 ml PER PROTOCOL IV ; Start 06/04/18 at 16:00 Acetaminophen/ Hydrocodone Bitart ([place] (5/325)) 2 tab Q6H PRN PO .SEVERE PAIN 7-10 Last administered on 06/05/18at 04:28; Admin Dose 2 TAB; Start 06/04/18 at 16:00 Enoxaparin Sodium (Lovenox) 30 mg DAILY SC Last administered on 06/07/18 08: 43; Admin Dose 30 MG; Start 06/05/18 at 09:00 Amlodipine Besylate (Norvasc) 5 mg DAILY PO Last administered on 06/07/18 08:42; Admin Dose 5 MG; Start 06/05/18 at 09:00 Metoprolol Succinate (Toprol Xl) 25 mg DAILY PO Last administered on 06/07/18 08:42; Admin Dose 25 MG; Start 06/05/18 at 09:00 Ondansetron HCl (Zofran Inj) 4 mg Q6H PRN IV NAUSEA AND/OR VOMITING; Start 06/04/18 at 16:00 Furosemide (Lasix) 20 mg BID DIURETICS IV Last administered on 06/07/18 05:43; Admin Dose 20 MG; Start 06/05/18 at 10:00 Clonidine HCl (Catapres-Tts 1 Patch) 1 patch Q7D TRANSDERM Last administered on 06/05/18at 12:55; Admin Dose 1 PATCH; Start 06/05/18 at 13:00 Lorazepam (Ativan) 1 mg Q8H PRN IV ANXIETY Last administered on 06/05/18at 12:08; Admin Dose 1 MG; Start 06/05/18 at 11:30 Acetaminophen (Tylenol Tab) 650 mg Q6H PRN PO MILD PAIN(1-3)OR ELEVATED TEMP Last administered on 06/07/18at 05:42; Admin Dose 650 MG; Start 06/06/18 at 14:50 Levalbuterol (Xopenex Neb) 0.63 mg Q8H RESP THERAPY HHN Last administered on 06/07/18at 16:21; Admin Dose 0.63 MG; Start 06/07/18 at 00:00 Allergies: Coded Allergies: Penicillins (Verified Allergy, Unknown, 06/04/18) Past Surgical History Past Surgical Hx: other (trach) Family History Significant Family History: no pertinent family hx Social History Alcohol Use: none Smoking Status: Never smoker Drug Use: none Exam/Review of Systems Vital Signs Vitals Vital Signs Date Temp Pulse Resp B/P (MAP) Pulse Ox O2 O2 Flow FiO2 Time Delivery Rate 06/07/18 20 94 Aerosol 8.0 40 18:11 Mask 06/07/18 98.8 92 107/64 18:01 (78) Intake and Output 06/06/18 06/06/18 06/07/18 1515:00 23:00 07:00 IntakeIntake Total 540 ml 1616 ml BalanceBalance 540 ml 1616 ml Exam Constitutional: No distress ENMT: mucosa pink and moist; No intubated Neck: other (Trace) Respiratory: clear to auscultation; No labored breathing Cardiovascular: regular rate and rhythm; No edema Gastrointestinal: soft, non-tender; No distended, No rebound or guarding Neurological: lethargic; No nl strength, No focal weakness Skin: nl turgor; No rash or lesions, No diaphoresis Labs Result Diagram: 06/06/18 0532 06/07/18 0621 Results 24hrs Laboratory Tests Test 06/07/18 06:21 Sodium Level 143 Potassium Level 3.4 L Chloride Level 105 Carbon Dioxide Level 31 Anion Gap 7 Blood Urea Nitrogen 54 H Creatinine 0.92 Est Glomerular Filtrat Rate mL/min > 60 Glucose Level 316 #H Calcium Level 9.1 Phosphorus Level 4.2 Magnesium Level 2.3 Imaging Imaging FINDINGS: The tracheostomy tube, nasogastric tube, and left arm PICC line remain in position, unchanged. Mild pulmonary edema and bibasilar atelectasis is also unchanged. The lungs are otherwise clear. The heart is mildly enlarged. There is no pleural effusion. There is no pneumothorax. IMPRESSION: 1. No change from the 06/04/2018 chest radiograph. RPTAT: QQ .jM Lee MD, MD Date Time Electronically viewed and signed by .Mj Lee MD, MD on 06/06/2018 09:51 Medications Medications Current Medications IV Flush (NS 3 ml) 3 ml PER PROTOCOL IV ; Start 06/04/18 at 16:00 Acetaminophen/ Hydrocodone Bitart ([place] (5/325)) 2 tab Q6H PRN PO .SEVERE PAIN 7-10 Last administered on 06/05/18at 04:28; Admin Dose 2 TAB; Start 06/04/18 at 16:00 Enoxaparin Sodium (Lovenox) 30 mg DAILY SC Last administered on 06/07/18 08:43; Admin Dose 30 MG; Start 06/05/18 at 09:00 Amlodipine Besylate (Norvasc) 5 mg DAILY PO Last administered on 06/07/18at 08:42; Admin Dose 5 MG; Start 06/05/18 at 09:00 Metoprolol Succinate (Toprol Xl) 25 mg DAILY PO Last administered on 06/07/18at 08:42; Admin Dose 25 MG; Start 06/05/18 at 09:00 Ondansetron HCl (Zofran Inj) 4 mg Q6H PRN IV NAUSEA AND/OR VOMITING; Start 06/04 at 16:00 Furosemide (Lasix) 20 mg BID DIURETICS IV Last administered on 06/07/18at 05:43; Admin Dose 20 MG; Start 06/05/18 at 10:00 Clonidine HCl (Catapres-Tts 1 Patch) 1 patch Q7D TRANSDERM Last administered on 06/05/18at 12:55; Admin Dose 1 PATCH; Start 06/05/18 at 13:00 Lorazepam (Ativan) 1 mg Q8H PRN IV ANXIETY Last administered on 06/05/18 12:08; Admin Dose 1 MG; Start 06/05/18 at 11:30 Acetaminophen (Tylenol Tab) 650 mg Q6H PRN PO MILD PAIN(1-3)OR ELEVATED TEMP Last administered on 06/07/18at 05:42; Admin Dose 650 MG; Start 06/06/18 at 14:50 Levalbuterol (Xopenex Neb) 0.63 mg Q8H RESP THERAPY HHN Last administered on 06/07/18at 16:21; Admin Dose 0.63 MG; Start 06/07/18 at 00:00 CHRIS SALAZAR MD Jun 07, 2018 19:36
[2018-06-08] VITALS (25 sets, daily range): BP systolic 86–136; BP diastolic 56–91; PULSE 85–114; RESP 12–28
[2018-06-08] MEDS: ACETAMINOPHEN 325 MG TAB PO PRN (00:26)
[2018-06-08] MEDS ORDERED: SOD CHLORIDE 0.45% 1,000 ML IV SCH ×2 (01:00→16:30)
[2018-06-08] MEDS: LEVALBUTEROL (NEB) 0.63 MG/3 ML AMP HHN SCH ×3 (02:16→16:37)
[2018-06-08] MEDS: METOPROLOL (XL) 25 MG TAB PO SCH ×2 (09:00→14:55)
[2018-06-08] MEDS: AMLODIPINE 5 MG TAB PO SCH ×2 (09:00→14:55)
--- NOTE | 2018-06-08 12:54 | PREAC ---
Date/Time of Note Date/Time of Note DATE: 06/08/18 TIME: 12:53 Anesthesia Eval and Record Evaluation Time Pre-Procedure Interview DATE: 06/08/18 TIME: 12:53 Age 57 Sex male NPO: 8 hrs Preoperative diagnosis dysphagia Planned procedure PEG Past Medical History Past Medical History: Includes Cardio: HTN, Dyslipidemia, DC, CAD, CHF Pulm: Other (resp failure) Musculoskeletal: Osteoarthritis Renal: AGUS GI: GERD Surgery & Anesthesia Issues No known issue Meds Anticoagulation: No Beta Nayana within 24 hr: No Reason Beta Nayana not given: Pt. not on B-Nayana Current Medications IV Flush (NS 3 ml) 3 ml PER PROTOCOL IV ; Start 06/04/18 at 16:00 Acetaminophen/ Hydrocodone Bitart ([place] (5/325)) 2 tab Q6H PRN PO .SEVERE PAIN 7-10 Last administered on 06/05/18 04:28; Admin Dose 2 TAB; Start 06/04/18 at 16:00 Amlodipine Besylate (Norvasc) 5 mg DAILY PO Last administered on 06/07/18 08:42; Admin Dose 5 MG; Start 06/05/18 at 09:00 Metoprolol Succinate (Toprol Xl) 25 mg DAILY PO Last administered on 06/07/18 08:42; Admin Dose 25 MG; Start 06/05/18 at 09:00 Ondansetron HCl (Zofran Inj) 4 mg Q6H PRN IV NAUSEA AND/OR VOMITING; Start 06/04/18 at 16:00 Clonidine HCl (Catapres-Tts 1 Patch) 1 patch Q7D TRANSDERM Last administered on 06/05/18 12:55; Admin Dose 1 PATCH; Start 06/05/18 at 13:00 Lorazepam (Ativan) 1 mg Q8H PRN IV ANXIETY Last administered on 06/05/18 12:08; Admin Dose 1 MG; Start 06/05/18 at 11:30 Acetaminophen (Tylenol Tab) 650 mg Q6H PRN PO MILD PAIN(1-3)OR ELEVATED TEMP Last administered on 06/08/18 00:26; Admin Dose 650 MG; Start 06/06/18 at 14:50 Levalbuterol (Xopenex Neb) 0.63 mg Q8H RESP THERAPY HHN Last administered on 2/13/19at 02:16; Admin Dose 0.63 MG; Start 06/07/18 at 00:00 Sodium Chloride 1,000 ml @ 40 mls/hr Q24H IV Last administered on 06/08/18at 01:00; Admin Dose 40 MLS/HR; Start 06/08/18 at 01:00 Meds reviewed: Yes Allergies Coded Allergies: Penicillins (Verified Allergy, Unknown, 06/04/18) Allergies Reviewed: Yes Labs/Studies Labs Reviewed: Reviewed by anesthesiologist Result Diagram: 06/08/18 0535 06/08/18 0535 Laboratory Tests 06/08/18 05:35 test: Negative Studies: ECG Pre-procedure Exam Last vitals Vital Signs Date Temp Pulse Resp B/P (MAP) Pulse Ox O2 O2 Flow FiO2 Time Delivery Rate 06/08/18 108 12:12 06/08/18 99.4 16 127/87 92 11:16 (100) 06/08/18 8.0 07:42 06/08/18 Aerosol 40 02:18 T Tube Airway: Adequate mouth opening, Adequate thyromental dist Mallampati: Mallampati II Teeth: Normal Lung: Normal Heart: Normal ASA Physical Status ASA physical status: 3 Emergency: None Planned Anesthetic General/MAC: Mask Pre-operative Attestations Prior to commencing anesthesia and surgery, the patient was re-evaluated, there was verification of: *The patient's identity *The results of appropriate recent lab work and preoperative vital signs *The above evaluation not changing prior to induction *Anesthetic plan, risk benefits, alternative and complications discussed with patient/family; questions answered; patient/family understands, accepts and wishes to proceed. JANESSA JONES Jun 08, 2018 12:54
[2018-06-08] MEDS ORDERED: PROPOFOL 20 ML ONE (13:00)
[2018-06-08] MEDS ORDERED: CEFAZOLIN 2 GM/50 ML (PMX) 50 ML IVPB ONE (13:04)
--- NOTE | 2018-06-08 13:27 | CONS ---
Assessment/Plan Assessment/Plan Assessment/Plan 57 yo Male with 1) Acute respiratory failure, S/p trach 2) CHF- significantly improved 3) Hx of B/l PNA S/p Treatment 4) Hx of AGUS with Recovery 5) Pre Renal Azotemia BUN Improved, Cr stable Will order gentle IVFs, D5W at 40ml x 1 L Cont to hold diuretic Rx at this time CXR Reviewed Repeat labs in am Strict Is and Os monitor UO Monitor electrolytes Free H20 Supplementation after gtube placement once cleared by GI Consultation Date/Type/Reason Admit Date/Time Jun 04, 2018 at 14:09 Type of Consult Nephrology Date/Time of Note DATE: 06/08/18 TIME: 13:26 Hx of Present Illness Down in GI lab for gtube placement Lasix held Exam/Review of Systems Vital Signs Vitals Vital Signs Date Temp Pulse Resp B/P (MAP) Pulse Ox O2 O2 Flow FiO2 Time Delivery Rate 06/08/18 108 12:12 06/08/18 99.4 16 127/87 92 11:16 (100) 06/08/18 8.0 07:42 06/08/18 Aerosol 40 02:18 T Tube Intake and Output 06/07/18 06/07/18 06/08/18 1515:00 23:00 07:00 IntakeIntake Total 225 ml 880 ml 535 ml BalanceBalance 225 ml 880 ml 535 ml Labs Result Diagram: 06/08/18 0535 06/08/18 0535 Results 24hrs Laboratory Tests Test 06/07/18 21:56 06/08/18 05:35 06/08/18 05:36 Hemoglobin 14.3 14.6 Hematocrit 48.2 48.2 White Blood Count 7.2 # Red Blood Count 5.48 Mean Corpuscular Volume 88.0 Mean Corpuscular Hemoglobin 26.6 L Mean Corpuscular Hemoglobin Concent 30.3 L Red Cell Distribution Width 15.1 H Platelet Count 197 # Mean Platelet Volume 11.7 H Immature Granulocytes % 0.300 Neutrophils % 59.6 Lymphocytes % 26.6 Monocytes % 8.7 Eosinophils % 4.1 Basophils % 0.7 Nucleated Red Blood Cells % 0.0 Immature Granulocytes # 0.020 Neutrophils # 4.3 Lymphocytes # 1.9 Monocytes # 0.6 Eosinophils # 0.3 Basophils # 0.1 Nucleated Red Blood Cells # 0.0 Sodium Level 149 H Potassium Level 4.1 Chloride Level 108 Carbon Dioxide Level 33 H Anion Gap 8 Blood Urea Nitrogen 50 H Creatinine 0.83 Est Glomerular Filtrat Rate mL/min > 60 Glucose Level 113 # Calcium Level 9.4 Phosphorus Level 4.1 Magnesium Level 2.5 Prothrombin Time 14.5 Prothrombin Time Ratio 1.1 INR International Normalized Ratio 1.12 Medications Medications Current Medications IV Flush (NS 3 ml) 3 ml PER PROTOCOL IV ; Start 06/04/18 at 16:00 Acetaminophen/ Hydrocodone Bitart ([place] (5/325)) 2 tab Q6H PRN PO .SEVERE PAIN 7-10 Last administered on 06/05/18 04:28; Admin Dose 2 TAB; Start 06/04/18 at 16:00 Amlodipine Besylate (Norvasc) 5 mg DAILY PO Last administered on 06/07/18 08:42; Admin Dose 5 MG; Start 06/05/18 at 09:00 Metoprolol Succinate (Toprol Xl) 25 mg DAILY PO Last administered on 06/07/18 08:42; Admin Dose 25 MG; Start 06/05/18 at 09:00 Ondansetron HCl (Zofran Inj) 4 mg Q6H PRN IV NAUSEA AND/OR VOMITING; Start 06/04/18 at 16:00 Clonidine HCl (Catapres-Tts 1 Patch) 1 patch Q7D TRANSDERM Last administered on 06/05/18 12:55; Admin Dose 1 PATCH; Start 06/05/18 at 13:00 Lorazepam (Ativan) 1 mg Q8H PRN IV ANXIETY Last administered on 06/05/18 12:08; Admin Dose 1 MG; Start 06/05/18 at 11:30 Acetaminophen (Tylenol Tab) 650 mg Q6H PRN PO MILD PAIN(1-3)OR ELEVATED TEMP Last administered on 06/08/18 00:26; Admin Dose 650 MG; Start 06/06/18 at 14:50 Levalbuterol (Xopenex Neb) 0.63 mg Q8H RESP THERAPY HHN Last administered on 06/08/18 02:16; Admin Dose 0.63 MG; Start 06/07/18 at 00:00 Sodium Chloride 1,000 ml @ 40 mls/hr Q24H IV Last administered on 06/08/18 0 1:00; Admin Dose 40 MLS/HR; Start 06/08/18 at 01:00 CHRIS SALAZAR MD Jun 08, 2018 13:27
[2018-06-08] MEDS ORDERED: DEXTROSE 5% 1,000 ML IV SCH (13:30)
--- NOTE | 2018-06-08 15:16 | CONS ---
Consult Date/Type/Reason Admit Date/Time Jun 04, 2018 at 14:09 Initial Consult Date 06/05/18 Type of Consult Pulmonary Requesting Provider: LAUREANO STEARNS Date/Time of Note DATE: 06/08/18 TIME: 15:15 Subjective Stable following PEG placement. Objective Vital Signs Date Temp Pulse Resp B/P (MAP) Pulse Ox O2 O2 Flow FiO2 Time Delivery Rate 06/08/18 98.4 98 22 136/91 96 Trach 14:47 (106) Collar 06/08/18 6.0 14:03 06/08/18 40 02:18 Intake and Output 06/07/18 06/07/18 06/08/18 1515:00 23:00 07:00 IntakeIntake Total 225 ml 880 ml 535 ml BalanceBalance 225 ml 880 ml 535 ml Exam GENERAL: trach peg. VITAL SIGNS: per chart NECK: Supple. No JVD or lymphadenopathy. CARDIAC EXAM: S1, S2. No added sounds or murmurs. CHEST: few rales. ABDOMEN: Soft, nontender. No guarding or rebound. EXTREMITIES: No cyanosis, clubbing or edema. NEUROLOGIC: Generalized weakness. No focal deficits. Vent Setting Fraction of Inspired Oxygen pe: 40 Results/Medications Result Diagram: 06/08/18 0535 06/08/18 0535 Results 24 hrs Laboratory Tests Test 06/07/18 21:56 06/08/18 05:35 06/08/18 05:36 Hemoglobin 14.3 14.6 Hematocrit 48.2 48.2 White Blood Count 7.2 # Red Blood Count 5.48 Mean Corpuscular Volume 88.0 Mean Corpuscular Hemoglobin 26.6 L Mean Corpuscular Hemoglobin Concent 30.3 L Red Cell Distribution Width 15.1 H Platelet Count 197 # Mean Platelet Volume 11.7 H Immature Granulocytes % 0.300 Neutrophils % 59.6 Lymphocytes % 26.6 Monocytes % 8.7 Eosinophils % 4.1 Basophils % 0.7 Nucleated Red Blood Cells % 0.0 Immature Granulocytes # 0.020 Neutrophils # 4.3 Lymphocytes # 1.9 Monocytes # 0.6 Eosinophils # 0.3 Basophils # 0.1 Nucleated Red Blood Cells # 0.0 Sodium Level 149 H Potassium Level 4.1 Chloride Level 108 Carbon Dioxide Level 33 H Anion Gap 8 Blood Urea Nitrogen 50 H Creatinine 0.83 Est Glomerular Filtrat Rate mL/min > 60 Glucose Level 113 # Calcium Level 9.4 Phosphorus Level 4.1 Magnesium Level 2.5 Prothrombin Time 14.5 Prothrombin Time Ratio 1.1 INR International Normalized Ratio 1.12 Medications Current Medications IV Flush (NS 3 ml) 3 ml PER PROTOCOL IV ; Start 06/04/18 at 16:00 Acetaminophen/ Hydrocodone Bitart ([place] (5/325)) 2 tab Q6H PRN PO .SEVERE PAIN 7-10 Last administered on 06/05/18 04:28; Admin Dose 2 TAB; Start 06/04/18 at 16:00 Amlodipine Besylate (Norvasc) 5 mg DAILY PO Last administered on 06/08/18 14:55; Admin Dose 5 MG; Start 06/05/18 at 09:00 Metoprolol Succinate (Toprol Xl) 25 mg DAILY PO Last administered on 06/08/18 14:55; Admin Dose 25 MG; Start 06/05/18 at 09:00 Ondansetron HCl (Zofran Inj) 4 mg Q6H PRN IV NAUSEA AND/OR VOMITING; Start 06/04/18 at 16:00 Clonidine HCl (Catapres-Tts 1 Patch) 1 patch Q7D TRANSDERM Last administered on 06/05/18 12:55; Admin Dose 1 PATCH; Start 06/05/18 at 13:00 Lorazepam (Ativan) 1 mg Q8H PRN IV ANXIETY Last administered on 06/05/18 12:08; Admin Dose 1 MG; Start 06/05/18 at 11:30 Acetaminophen (Tylenol Tab) 650 mg Q6H PRN PO MILD PAIN(1-3)OR ELEVATED TEMP Last administered on 06/08/18 00:26; Admin Dose 650 MG; Start 06/06/18 at 14:50 Levalbuterol (Xopenex Neb) 0.63 mg Q8H RESP THERAPY HHN Last administered on 06/08/18 02:16; Admin Dose 0.63 MG; Start 06/07/18 at 00:00 Sodium Chloride 1,000 ml @ 40 mls/hr Q24H IV Last administered on 06/08/18 01:00; Admin Dose 40 MLS/HR; Start 06/08/18 at 01:00 Dextrose 1,000 ml @ 40 mls/hr Q24H IV Last administered on 2/13/19at 14:55; Admin Dose 40 MLS/HR; Start 06/08/18 at 13:30; Stop 06/09/18 at 14:29 Assessment/Plan Hospital Course (Demo Recall) IMP: 1. Chronic Respiratory Failure s/p tracheotomy 2. History of Multilobar pneumonia --now with copious secretions 3. HFpEF 4. s/p AGUS 5. Encephalopathy--likely toxic-metabolic RECS: 1. Aggressive CPT/suctioning 2. Bronchodilators 3. Cont trach collar 4. ST eval; eventual PMV 5. Dietary consult 6. DVT prophylaxis 7. s/p PEG placement. Start TF transfer to SNF MARIO HARMON MD, [facility] Jun 08, 2018 15:16
--- NOTE | 2018-06-08 16:28 | PN ---
Date/Time of Note Date/Time of Note DATE: 06/08/18 TIME: 16:27 Assessment/Plan VTE Prophylaxis Risk score (from Ns)>0 risk: 7 SCD applied (from Ns): Yes Pharmacological prophylaxis: LMWH Lines/Catheters Urinary Cath still in place: No Assessment/Plan Hospital Course 57 yo male with h/o diastolic CHF, hypertension, obesity who was admitted to [facility] 05/04/18 for acute respiratory failure 2/2 pneumonia and acute diastolic CHF. He had prolonged ICU course with intubation and required tracheostomy. He has been transferred to [facility] now for swallow evaluation and consideration of possible PEG tube Acute respiratory failure: - s/p intubation and tracheostomy - Wean O2 as needed -Pulmonary consultation appreciated - Pulmonary toilet Dysphagia: -PEG tube placement today - Swallow eval Diastolic CHF: - Continue lasix 20 mg IV daily Hypertension: - Continue amlodipine 5 mg daily, Toprol 25 daily, clonidine patch 0.1 mg. Monitor and titrate BP meds Agitation: Improved - Ativan PRN Pneumonia: - Has completed course of antibiotics, will hold further abx and monitor Prophylaxis: Lovenox DC planning: DC to subacute tomorrow Result Diagram: 06/08/18 0535 06/08/18 0535 Results 24hrs Laboratory Tests Test 06/07/18 21:56 06/08/18 05:35 06/08/18 05:36 Hemoglobin 14.3 14.6 Hematocrit 48.2 48.2 White Blood Count 7.2 # Red Blood Count 5.48 Mean Corpuscular Volume 88.0 Mean Corpuscular Hemoglobin 26.6 L Mean Corpuscular Hemoglobin Concent 30.3 L Red Cell Distribution Width 15.1 H Platelet Count 197 # Mean Platelet Volume 11.7 H Immature Granulocytes % 0.300 Neutrophils % 59.6 Lymphocytes % 26.6 Monocytes % 8.7 Eosinophils % 4.1 Basophils % 0.7 Nucleated Red Blood Cells % 0.0 Immature Granulocytes # 0.020 Neutrophils # 4.3 Lymphocytes # 1.9 Monocytes # 0.6 Eosinophils # 0.3 Basophils # 0.1 Nucleated Red Blood Cells # 0.0 Sodium Level 149 H Potassium Level 4.1 Chloride Level 108 Carbon Dioxide Level 33 H Anion Gap 8 Blood Urea Nitrogen 50 H Creatinine 0.83 Est Glomerular Filtrat Rate mL/min > 60 Glucose Level 113 # Calcium Level 9.4 Phosphorus Level 4.1 Magnesium Level 2.5 Prothrombin Time 14.5 Prothrombin Time Ratio 1.1 INR International Normalized Ratio 1.12 Subjective 24 Hr Interval Summary Constitutional: no complaints Exam/Review of Systems Exam Vitals Vital Signs Date Temp Pulse Resp B/P (MAP) Pulse Ox O2 O2 Flow FiO2 Time Delivery Rate 06/08/18 97 16:14 06/08/18 98.5 16 136/85 97 15:24 (102) 06/08/18 Trach 14:47 Collar 06/08/18 6.0 14:03 06/08/18 40 02:18 Intake and Output 06/07/18 06/07/18 06/08/18 1515:00 23:00 07:00 IntakeIntake Total 225 ml 880 ml 535 ml BalanceBalance 225 ml 880 ml 535 ml Constitutional: alert Respiratory: clear to auscultation Cardiovascular: regular rate and rhythm Gastrointestinal: soft; No distended Musculoskeletal: nl extremities to inspection Results Results 24hrs Laboratory Tests Test 06/07/18 21:56 06/08/18 05:35 06/08/18 05:36 Hemoglobin 14.3 14.6 Hematocrit 48.2 48.2 White Blood Count 7.2 # Red Blood Count 5.48 Mean Corpuscular Volume 88.0 Mean Corpuscular Hemoglobin 26.6 L Mean Corpuscular Hemoglobin Concent 30.3 L Red Cell Distribution Width 15.1 H Platelet Count 197 # Mean Platelet Volume 11.7 H Immature Granulocytes % 0.300 Neutrophils % 59.6 Lymphocytes % 26.6 Monocytes % 8.7 Eosinophils % 4.1 Basophils % 0.7 Nucleated Red Blood Cells % 0.0 Immature Granulocytes # 0.020 Neutrophils # 4.3 Lymphocytes # 1.9 Monocytes # 0.6 Eosinophils # 0.3 Basophils # 0.1 Nucleated Red Blood Cells # 0.0 Sodium Level 149 H Potassium Level 4.1 Chloride Level 108 Carbon Dioxide Level 33 H Anion Gap 8 Blood Urea Nitrogen 50 H Creatinine 0.83 Est Glomerular Filtrat Rate mL/min > 60 Glucose Level 113 # Calcium Level 9.4 Phosphorus Level 4.1 Magnesium Level 2.5 Prothrombin Time 14.5 Prothrombin Time Ratio 1.1 INR International Normalized Ratio 1.12 Medications Medication Current Medications IV Flush (NS 3 ml) 3 ml PER PROTOCOL IV ; Start 06/04/18 at 16:00 Acetaminophen/ Hydrocodone Bitart ([place] (5/325)) 2 tab Q6H PRN PO .SEVERE PAIN 7-10 Last administered on 06/05/18 04:28; Admin Dose 2 TAB; Start 06/04/18 at 16:00 Amlodipine Besylate (Norvasc) 5 mg DAILY PO Last administered on 06/08/18 14:55; Admin Dose 5 MG; Start 06/05/18 at 09:00 Metoprolol Succinate (Toprol Xl) 25 mg DAILY PO Last administered on 06/08/18 14:55; Admin Dose 25 MG; Start 06/05/18 at 09:00 Ondansetron HCl (Zofran Inj) 4 mg Q6H PRN IV NAUSEA AND/OR VOMITING; Start 06/04/18 at 16:00 Clonidine HCl (Catapres-Tts 1 Patch) 1 patch Q7D TRANSDERM Last administered on 06/05/18 12:55; Admin Dose 1 PATCH; Start 06/05/18 at 13:00 Lorazepam (Ativan) 1 mg Q8H PRN IV ANXIETY Last administered on 06/05/18 12:08; Admin Dose 1 MG; Start 06/05/18 at 11:30 Acetaminophen (Tylenol Tab) 650 mg Q6H PRN PO MILD PAIN(1-3)OR ELEVATED TEMP Last administered on 06/08/18 00:26; Admin Dose 650 MG; Start 06/06/18 at 14:50 Levalbuterol (Xopenex Neb) 0.63 mg Q8H RESP THERAPY HHN Last administered on 06/08/18 02:16; Admin Dose 0.63 MG; Start 06/07/18 at 00:00 Sodium Chloride 1,000 ml @ 40 mls/hr Q24H IV Last administered on 06/08/18 01:00; Admin Dose 40 MLS/HR; Start 06/08/18 at 01:00 Dextrose 1,000 ml @ 40 mls/hr Q24H IV Last administered on 06/08/18 14:55; Admin Dose 40 MLS/HR; Start 06/08/18 at 13:30; Stop 06/09/18 at 14:29 LAUREANO STEARNS Jun 08, 2018 16:28
--- NOTE | 2018-06-08 20:07 | PAC ---
Date/Time of Note Date/Time of Note DATE: 06/08/18 TIME: 20:07 Post-Anesthesia Notes Post-Anesthesia Note Last documented vital signs Vital Signs Date Temp Pulse Resp B/P (MAP) Pulse Ox O2 O2 Flow FiO2 Time Delivery Rate 06/08/18 101 20:00 06/08/18 98.7 19 119/74 95 Trach 18:37 (89) Collar 06/08/18 10.0 40 16:37 Activity: WNL Respiratory function: WNL Cardiovascular function: WNL Mental status: Baseline Pain reasonably controlled: Yes Hydration appropriate: Yes Nausea/Vomiting absent: Yes JANESSA JONES Jun 08, 2018 20:07
[2018-06-09] VITALS (17 sets, daily range): BP systolic 112–136; BP diastolic 71–93; PULSE 88–110; RESP 16–21
[2018-06-09] MEDS: LEVALBUTEROL (NEB) 0.63 MG/3 ML AMP HHN SCH ×4 (01:50→23:21)
[2018-06-09] MEDS: METOPROLOL (XL) 25 MG TAB PO SCH (08:54)
[2018-06-09] MEDS: AMLODIPINE 5 MG TAB PO SCH (08:55)
--- NOTE | 2018-06-09 11:33 | CONS ---
Consult Date/Type/Reason Admit Date/Time Jun 04, 2018 at 14:09 Initial Consult Date 06/05/18 Type of Consult Pulmonary Requesting Provider: LAUREANO STEARNS Date/Time of Note DATE: 06/09/18 TIME: 11:32 Subjective Awake alert. Intermittent agitation this morning. Objective Vital Signs Date Temp Pulse Resp B/P (MAP) Pulse Ox O2 O2 Flow FiO2 Time Delivery Rate 06/09/18 100.0 110 16 131/83 95 11:26 (99) 06/09/18 10.0 40 07:54 06/09/18 Aerosol 07:54 Mask Intake and Output 06/08/18 06/08/18 06/09/18 1515:00 23:00 07:00 IntakeIntake Total 200 ml 240 ml 1100 ml BalanceBalance 200 ml 240 ml 1100 ml Exam GENERAL: trach peg. VITAL SIGNS: per chart NECK: Supple. No JVD or lymphadenopathy. CARDIAC EXAM: S1, S2. No added sounds or murmurs. CHEST: few rales. ABDOMEN: Soft, nontender. No guarding or rebound. EXTREMITIES: No cyanosis, clubbing or edema. NEUROLOGIC: Generalized weakness. No focal deficits. Vent Setting Fraction of Inspired Oxygen pe: 40 Results/Medications Result Diagram: 06/09/18 0547 06/09/18 0547 Results 24 hrs Laboratory Tests Test 06/09/18 05:47 White Blood Count 6.6 Red Blood Count 5.22 Hemoglobin 13.9 L Hematocrit 46.4 Mean Corpuscular Volume 88.9 Mean Corpuscular Hemoglobin 26.6 L Mean Corpuscular Hemoglobin Concent 30.0 L Red Cell Distribution Width 15.1 H Platelet Count 184 Mean Platelet Volume 12.2 H Immature Granulocytes % 0.300 Neutrophils % 53.7 Lymphocytes % 30.7 Monocytes % 10.1 Eosinophils % 4.4 Basophils % 0.8 Nucleated Red Blood Cells % 0.0 Immature Granulocytes # 0.020 Neutrophils # 3.6 Lymphocytes # 2.0 Monocytes # 0.7 Eosinophils # 0.3 Basophils # 0.1 Nucleated Red Blood Cells # 0.0 Sodium Level 148 H Potassium Level 4.3 Chloride Level 111 H Carbon Dioxide Level 29 Anion Gap 8 Blood Urea Nitrogen 45 H Creatinine 0.77 Est Glomerular Filtrat Rate mL/min > 60 Glucose Level 117 Calcium Level 9.5 Medications Current Medications IV Flush (NS 3 ml) 3 ml PER PROTOCOL IV ; Start 06/04/18 at 16:00 Acetaminophen/ Hydrocodone Bitart ([place] (5/325)) 2 tab Q6H PRN PO .SEVERE PAIN 7-10 Last administered on 06/05/18 04:28; Admin Dose 2 TAB; Start 06/04/18 at 16:00 Amlodipine Besylate (Norvasc) 5 mg DAILY PO Last administered on 06/09/18 08:55; Admin Dose 5 MG; Start 06/05/18 at 09:00 Metoprolol Succinate (Toprol Xl) 25 mg DAILY PO Last administered on 06/09/18 08:54; Admin Dose 25 MG; Start 06/05/18 at 09:00 Ondansetron HCl (Zofran Inj) 4 mg Q6H PRN IV NAUSEA AND/OR VOMITING; Start 06/04/18 at 16:00 Clonidine HCl (Catapres-Tts 1 Patch) 1 patch Q7D TRANSDERM Last administered on 06/05/18 12:55; Admin Dose 1 PATCH; Start 06/05/18 at 13:00 Lorazepam (Ativan) 1 mg Q8H PRN IV ANXIETY Last administered on 06/05/18 12:08; Admin Dose 1 MG; Start 06/05/18 at 11:30 Acetaminophen (Tylenol Tab) 650 mg Q6H PRN PO MILD PAIN(1-3)OR ELEVATED TEMP Last administered on 06/08/18 00:26; Admin Dose 650 MG; Start 06/06/18 at 14:50 Levalbuterol (Xopenex Neb) 0.63 mg Q8H RESP THERAPY HHN Last administered on 06/09/18 07:53; Admin Dose 0.63 MG; Start 06/07/18 at 00:00 Assessment/Plan Hospital Course (Demo Recall) IMP: 1. Chronic Respiratory Failure s/p tracheotomy 2. History of Multilobar pneumonia --now with copious secretions 3. HFpEF 4. s/p AGUS 5. Encephalopathy--likely toxic-metabolic RECS: 1. Aggressive CPT/suctioning 2. Bronchodilators 3. Cont trach collar 4. ST eval; eventual PMV 5. Dietary consult 6. DVT prophylaxis 7. s/p PEG placement. Continue tube feeding as tolerated transfer to SNF [facility] HARMON MD, [facility] Jun 09, 2018 11:33
--- NOTE | 2018-06-09 11:39 | CONS ---
Assessment/Plan Assessment/Plan Assessment/Plan 57 yo Male with 1) Acute respiratory failure, S/p trach 2) CHF- significantly improved 3) Hx of B/l PNA S/p Treatment 4) Hx of AGUS with Recovery 5) Pre Renal Azotemia- stable improving BUN Improved, Cr stable Restart lasix through PEG Cont free H20 flushes q4hr Repeat labs in am Needs more suctioning Nebulizer treatment now Consultation Date/Type/Reason Admit Date/Time Jun 04, 2018 at 14:09 Type of Consult Nephrology Date/Time of Note DATE: 06/09/18 TIME: 11:37 Hx of Present Illness Restless, restrained thick secretions S/p PEG water flushes started Constitutional: requiring O2 Exam/Review of Systems Vital Signs Vitals Vital Signs Date Temp Pulse Resp B/P (MAP) Pulse Ox O2 O2 Flow FiO2 Time Delivery Rate 06/09/18 100.0 110 16 131/83 95 11:26 (99) 06/09/18 10.0 40 07:54 06/09/18 Aerosol 07:54 Mask Intake and Output 06/08/18 06/08/18 06/09/18 1515:00 23:00 07:00 IntakeIntake Total 200 ml 240 ml 1100 ml BalanceBalance 200 ml 240 ml 1100 ml Exam Constitutional: distress Psych: anxiety Head: normocephalic, atraumatic Eyes: EOMI ENMT: mucosa pink and moist, other (trach) Respiratory: crackles/rales, wheezing; No diminished breath sounds, No labored breathing Cardiovascular: regular rate and rhythm; No edema Gastrointestinal: soft, non-tender, other (gtube); No distended, No rebound or guarding Extremities: No edema Neurological: No lethargic Skin: No rash or lesions Labs Result Diagram: 06/09/18 0547 06/09/18 0547 Results 24hrs Laboratory Tests Test 06/09/18 05:47 White Blood Count 6.6 Red Blood Count 5.22 Hemoglobin 13.9 L Hematocrit 46.4 Mean Corpuscular Volume 88.9 Mean Corpuscular Hemoglobin 26.6 L Mean Corpuscular Hemoglobin Concent 30.0 L Red Cell Distribution Width 15.1 H Platelet Count 184 Mean Platelet Volume 12.2 H Immature Granulocytes % 0.300 Neutrophils % 53.7 Lymphocytes % 30.7 Monocytes % 10.1 Eosinophils % 4.4 Basophils % 0.8 Nucleated Red Blood Cells % 0.0 Immature Granulocytes # 0.020 Neutrophils # 3.6 Lymphocytes # 2.0 Monocytes # 0.7 Eosinophils # 0.3 Basophils # 0.1 Nucleated Red Blood Cells # 0.0 Sodium Level 148 H Potassium Level 4.3 Chloride Level 111 H Carbon Dioxide Level 29 Anion Gap 8 Blood Urea Nitrogen 45 H Creatinine 0.77 Est Glomerular Filtrat Rate mL/min > 60 Glucose Level 117 Calcium Level 9.5 Medications Medications Current Medications IV Flush (NS 3 ml) 3 ml PER PROTOCOL IV ; Start 06/04/18 at 16:00 Acetaminophen/ Hydrocodone Bitart ([place] (5/325)) 2 tab Q6H PRN PO .SEVERE PAIN 7-10 Last administered on 06/05/18 04:28; Admin Dose 2 TAB; Start 06/04/18 at 16:00 Amlodipine Besylate (Norvasc) 5 mg DAILY PO Last administered on 06/09/18 08:55; Admin Dose 5 MG; Start 06/05/18 at 09:00 Metoprolol Succinate (Toprol Xl) 25 mg DAILY PO Last administered on 06/09/18 08:54; Admin Dose 25 MG; Start 06/05/18 at 09:00 Ondansetron HCl (Zofran Inj) 4 mg Q6H PRN IV NAUSEA AND/OR VOMITING; Start 06/04/18 at 16:00 Clonidine HCl (Catapres-Tts 1 Patch) 1 patch Q7D TRANSDERM Last administered on 06/05/18 12:55; Admin Dose 1 PATCH; Start 06/05/18 at 13:00 Lorazepam (Ativan) 1 mg Q8H PRN IV ANXIETY Last administered on 06/05/18 12:08; Admin Dose 1 MG; Start 06/05/18 at 11:30 Acetaminophen (Tylenol Tab) 650 mg Q6H PRN PO MILD PAIN(1-3)OR ELEVATED TEMP Last administered on 06/08/18 00:26; Admin Dose 650 MG; Start 06/06/18 at 14:50 Levalbuterol (Xopenex Neb) 0.63 mg Q8H RESP THERAPY HHN Last administered on 06/09/18 07:53; Admin Dose 0.63 MG; Start 06/07/18 at 00:00 CHRIS SALAZAR MD 14, 2019 11:39
[2018-06-09] MEDS: FUROSEMIDE 20 MG TAB GTB SCH (12:04)
[2018-06-09] MEDS: clonAZEPAM 0.5 MG TAB PO SCH ×2 (12:58→20:53)
--- NOTE | 2018-06-09 15:27 | PN ---
Date/Time of Note Date/Time of Note DATE: 06/09/18 TIME: 15:20 Assessment/Plan VTE Prophylaxis Risk score (from Nsg)>0 risk: 5 SCD applied (from Nsg): Yes Pharmacological prophylaxis: other (scds) Lines/Catheters IV Catheter Type (from Nrsg): PICC Line Central line still needed: Yes (meds) Urinary Cath still in place: No Assessment/Plan Hospital Course Summary Assessment and Plan: Assessment: Dysphagia - evaluated by ST- failed bedside swallow eval -06/08/18 -Uneventful PEG placement Acute respiratory failure s/p tracheostomy- not on MV -Increased secretions -Pulmonary following Recent PNA- s/p antibiotic treatment Diastolic CHF- EF 55% HTN Plan: TF to goal rate PEG care BID GI will sign off but will be available upon reconsult as needed Patient seen in collaboration with Dr. Haynes/Allie Subjective: Course reviewed with nursing staff Patient interviewed and examined All labs, imaging and other results reviewed The patient appears comfortable No over night events, family at bedside. PEG in place, no s/s of infection noted PHYSICAL EXAMINATION: GENERAL: Well developed, well nourished, alert and confused, tracheostomy in place not on MV, restraints in place SKIN: no lesions EYES: Pupils equal reactive to light, no discharge. EARS/NOSE AND THROAT: Ears normal, nose normal, NGT in place NECK: Supple, no masses CHEST: Inspection within normal limits. CARDIOVASCULAR: Heart: Regular rate and rhythm. RESPIRATORY: Lungs clear to auscultation GASTROINTESTINAL AND LIVER: Abdomen: Soft, non tenderness, non-distended, g-tube in place, no hernias, no masses, no organomegaly, no ascites, no guarding, no rebound tenderness, normoactive bowel sounds. Rectal: Deferred. Result Diagram: 06/09/18 0547 06/09/18 0547 Results 24hrs Laboratory Tests Test 06/09/18 05:47 White Blood Count 6.6 Red Blood Count 5.22 Hemoglobin 13.9 L Hematocrit 46.4 Mean Corpuscular Volume 88.9 Mean Corpuscular Hemoglobin 26.6 L Mean Corpuscular Hemoglobin Concent 30.0 L Red Cell Distribution Width 15.1 H Platelet Count 184 Mean Platelet Volume 12.2 H Immature Granulocytes % 0.300 Neutrophils % 53.7 Lymphocytes % 30.7 Monocytes % 10.1 Eosinophils % 4.4 Basophils % 0.8 Nucleated Red Blood Cells % 0.0 Immature Granulocytes # 0.020 Neutrophils # 3.6 Lymphocytes # 2.0 Monocytes # 0.7 Eosinophils # 0.3 Basophils # 0.1 Nucleated Red Blood Cells # 0.0 Sodium Level 148 H Potassium Level 4.3 Chloride Level 111 H Carbon Dioxide Level 29 Anion Gap 8 Blood Urea Nitrogen 45 H Creatinine 0.77 Est Glomerular Filtrat Rate mL/min > 60 Glucose Level 117 Calcium Level 9.5 Exam/Review of Systems Exam Vitals Vital Signs Date Temp Pulse Resp B/P (MAP) Pulse Ox O2 O2 Flow FiO2 Time Delivery Rate 06/09/18 103 12:00 06/09/18 100.0 16 131/83 95 11:26 (99) 06/09/18 10.0 40 07:54 06/09/18 Aerosol 07:54 Mask Intake and Output 06/08/18 06/08/18 06/09/18 1515:00 23:00 07:00 IntakeIntake Total 200 ml 240 ml 1100 ml BalanceBalance 200 ml 240 ml 1100 ml Results Results 24hrs Laboratory Tests Test 06/09/18 05:47 White Blood Count 6.6 Red Blood Count 5.22 Hemoglobin 13.9 L Hematocrit 46.4 Mean Corpuscular Volume 88.9 Mean Corpuscular Hemoglobin 26.6 L Mean Corpuscular Hemoglobin Concent 30.0 L Red Cell Distribution Width 15.1 H Platelet Count 184 Mean Platelet Volume 12.2 H Immature Granulocytes % 0.300 Neutrophils % 53.7 Lymphocytes % 30.7 Monocytes % 10.1 Eosinophils % 4.4 Basophils % 0.8 Nucleated Red Blood Cells % 0.0 Immature Granulocytes # 0.020 Neutrophils # 3.6 Lymphocytes # 2.0 Monocytes # 0.7 Eosinophils # 0.3 Basophils # 0.1 Nucleated Red Blood Cells # 0.0 Sodium Level 148 H Potassium Level 4.3 Chloride Level 111 H Carbon Dioxide Level 29 Anion Gap 8 Blood Urea Nitrogen 45 H Creatinine 0.77 Est Glomerular Filtrat Rate mL/min > 60 Glucose Level 117 Calcium Level 9.5 Medications Medication Current Medications IV Flush (NS 3 ml) 3 ml PER PROTOCOL IV ; Start 06/04/18 at 16:00 Acetaminophen/ Hydrocodone Bitart ([place] (5/325)) 2 tab Q6H PRN PO .SEVERE PAIN 7-10 Last administered on 06/05/18 04:28; Admin Dose 2 TAB; Start 06/04/18 at 16:00 Amlodipine Besylate (Norvasc) 5 mg DAILY PO Last administered on 06/09/18 08:55; Admin Dose 5 MG; Start 06/05/18 at 09:00 Metoprolol Succinate (Toprol Xl) 25 mg DAILY PO Last administered on 06/09/18 08:54; Admin Dose 25 MG; Start 06/05/18 at 09:00 Ondansetron HCl (Zofran Inj) 4 mg Q6H PRN IV NAUSEA AND/OR VOMITING; Start 06/04/18 at 16:00 Clonidine HCl (Catapres-Tts 1 Patch) 1 patch Q7D TRANSDERM Last administered on 06/05/18 12:55; Admin Dose 1 PATCH; Start 06/05/18 at 13:00 Lorazepam (Ativan) 1 mg Q8H PRN IV ANXIETY Last administered on 06/05/18 1 2:08; Admin Dose 1 MG; Start 06/05/18 at 11:30 Acetaminophen (Tylenol Tab) 650 mg Q6H PRN PO MILD PAIN(1-3)OR ELEVATED TEMP Last administered on 06/08/18 00:26; Admin Dose 650 MG; Start 06/06/18 at 14:50 Levalbuterol (Xopenex Neb) 0.63 mg Q8H RESP THERAPY HHN Last administered on 06/09/18 07:53; Admin Dose 0.63 MG; Start 06/07/18 at 00:00 Furosemide (Lasix) 20 mg DAILY GTB Last administered on 06/09/18 12:04; Admin Dose 20 MG; Start 06/09/18 at 12:00 Clonazepam (Klonopin) 0.5 mg BID PO Last administered on 06/09/18 12:58; Admin Dose 0.5 MG; Start 06/09/18 at 13:00 ELYSE FABIAN Jun 09, 2018 15:27
--- NOTE | 2018-06-09 16:13 | PN ---
Date/Time of Note Date/Time of Note DATE: 06/09/18 TIME: 16:11 Assessment/Plan VTE Prophylaxis Risk score (from Ns)>0 risk: 5 SCD applied (from Ns): Yes Pharmacological prophylaxis: LMWH Lines/Catheters Urinary Cath still in place: No Assessment/Plan Hospital Course 57 yo male with h/o diastolic CHF, hypertension, obesity who was admitted to [facility] 05/04/18 for acute respiratory failure 2/2 pneumonia and acute diastolic CHF. He had prolonged ICU course with intubation and required tracheostomy. He has been transferred to [facility] now for swallow evaluation and consideration of possible PEG tube Acute respiratory failure: - s/p intubation and tracheostomy - Wean O2 as needed -Pulmonary consultation appreciated - Pulmonary toilet Dysphagia: -PEG tube now placed - Swallow eval Diastolic CHF: - Continue lasix 20 mg IV daily Hypertension: - Continue amlodipine 5 mg daily, Toprol 25 daily, clonidine patch 0.1 mg. Monitor and titrate BP meds Agitation: Improved - Ativan PRN Pneumonia: - Has completed course of antibiotics, will hold further abx and monitor Agitation with chronic encephalopathy -Klonopin started History of acute kidney injury-resolved -Nephrology following Prophylaxis: Lovenox DC planning: DC to subacute once off restraints Result Diagram: 06/09/18 0547 06/09/18 0547 Results 24hrs Laboratory Tests Test 06/09/18 05:47 White Blood Count 6.6 Red Blood Count 5.22 Hemoglobin 13.9 L Hematocrit 46.4 Mean Corpuscular Volume 88.9 Mean Corpuscular Hemoglobin 26.6 L Mean Corpuscular Hemoglobin Concent 30.0 L Red Cell Distribution Width 15.1 H Platelet Count 184 Mean Platelet Volume 12.2 H Immature Granulocytes % 0.300 Neutrophils % 53.7 Lymphocytes % 30.7 Monocytes % 10.1 Eosinophils % 4.4 Basophils % 0.8 Nucleated Red Blood Cells % 0.0 Immature Granulocytes # 0.020 Neutrophils # 3.6 Lymphocytes # 2.0 Monocytes # 0.7 Eosinophils # 0.3 Basophils # 0.1 Nucleated Red Blood Cells # 0.0 Sodium Level 148 H Potassium Level 4.3 Chloride Level 111 H Carbon Dioxide Level 29 Anion Gap 8 Blood Urea Nitrogen 45 H Creatinine 0.77 Est Glomerular Filtrat Rate mL/min > 60 Glucose Level 117 Calcium Level 9.5 Subjective 24 Hr Interval Summary Constitutional: no complaints Exam/Review of Systems Exam Vitals Vital Signs Date Temp Pulse Resp B/P (MAP) Pulse Ox O2 O2 Flow FiO2 Time Delivery Rate 06/09/18 98.2 98 16 136/82 97 15:40 (100) 06/09/18 10.0 40 07:54 06/09/18 Aerosol 07:54 Mask Intake and Output 06/08/18 06/08/18 06/09/18 1515:00 23:00 07:00 IntakeIntake Total 200 ml 240 ml 1100 ml BalanceBalance 200 ml 240 ml 1100 ml Constitutional: alert Psych: confusion Respiratory: clear to auscultation Cardiovascular: regular rate and rhythm Gastrointestinal: soft; No distended Musculoskeletal: nl extremities to inspection Results Results 24hrs Laboratory Tests Test 06/09/18 05:47 White Blood Count 6.6 Red Blood Count 5.22 Hemoglobin 13.9 L Hematocrit 46.4 Mean Corpuscular Volume 88.9 Mean Corpuscular Hemoglobin 26.6 L Mean Corpuscular Hemoglobin Concent 30.0 L Red Cell Distribution Width 15.1 H Platelet Count 184 Mean Platelet Volume 12.2 H Immature Granulocytes % 0.300 Neutrophils % 53.7 Lymphocytes % 30.7 Monocytes % 10.1 Eosinophils % 4.4 Basophils % 0.8 Nucleated Red Blood Cells % 0.0 Immature Granulocytes # 0.020 Neutrophils # 3.6 Lymphocytes # 2.0 Monocytes # 0.7 Eosinophils # 0.3 Basophils # 0.1 Nucleated Red Blood Cells # 0.0 Sodium Level 148 H Potassium Level 4.3 Chloride Level 111 H Carbon Dioxide Level 29 Anion Gap 8 Blood Urea Nitrogen 45 H Creatinine 0.77 Est Glomerular Filtrat Rate mL/min > 60 Glucose Level 117 Calcium Level 9.5 Medications Medication Current Medications IV Flush (NS 3 ml) 3 ml PER PROTOCOL IV ; Start 06/04/18 at 16:00 Acetaminophen/ Hydrocodone Bitart ([place] (5/325)) 2 tab Q6H PRN PO .SEVERE PAIN 7-10 Last administered on 06/05/18at 04:28; Admin Dose 2 TAB; Start 06/04/18 at 16:00 Amlodipine Besylate (Norvasc) 5 mg DAILY PO Last administered on 06/09/18at 08:55; Admin Dose 5 MG; Start 06/05/18 at 09:00 Metoprolol Succinate (Toprol Xl) 25 mg DAILY PO Last administered on 06/09/18 08:54; Admin Dose 25 MG; Start 06/05/18 at 09:00 Ondansetron HCl (Zofran Inj) 4 mg Q6H PRN IV NAUSEA AND/OR VOMITING; Start 06/04/18 at 16:00 Clonidine HCl (Catapres-Tts 1 Patch) 1 patch Q7D TRANSDERM Last administered on 06/05/18 12:55; Admin Dose 1 PATCH; Start 06/05/18 at 13:00 Lorazepam (Ativan) 1 mg Q8H PRN IV ANXIETY Last administered on 06/05/18 12:08; Admin Dose 1 MG; Start 06/05/18 at 11:30 Acetaminophen (Tylenol Tab) 650 mg Q6H PRN PO MILD PAIN(1-3)OR ELEVATED TEMP Last administered on 06/08/18 00:26; Admin Dose 650 MG; Start 06/06/18 at 14:50 Levalbuterol (Xopenex Neb) 0.63 mg Q8H RESP THERAPY HHN Last administered on 06/09/18 07:53; Admin Dose 0.63 MG; Start 06/07/18 at 00:00 Furosemide (Lasix) 20 mg DAILY GTB Last administered on 06/09/18 12:04; Admin Dose 20 MG; Start 06/09/18 at 12:00 Clonazepam (Klonopin) 0.5 mg BID PO Last administered on 06/09/18 12:58; Admin Dose 0.5 MG; Start 06/09/18 at 13:00 LAUREANO STEARNS Jun 09, 2018 16:13
[2018-06-09] MEDS: ACETAMINOPHEN 325 MG TAB PO PRN (23:32)
[2018-06-10] VITALS (15 sets, daily range): BP systolic 101–135; BP diastolic 58–81; PULSE 85–110; RESP 18–20
[2018-06-10] MEDS ORDERED: VITAMIN A & D 5 GM OINT PACKET TOP ONE (04:33)
[2018-06-10] MEDS: LEVALBUTEROL (NEB) 0.63 MG/3 ML AMP HHN SCH ×2 (08:07→16:10)
[2018-06-10] MEDS: clonAZEPAM 0.5 MG TAB PO SCH ×2 (08:22→20:49)
[2018-06-10] MEDS: AMLODIPINE 5 MG TAB PO SCH (08:22)
[2018-06-10] MEDS: FUROSEMIDE 20 MG TAB GTB SCH (08:23)
[2018-06-10] MEDS: METOPROLOL (XL) 25 MG TAB PO SCH (08:23)
--- NOTE | 2018-06-10 11:50 | PN ---
Date/Time of Note Date/Time of Note DATE: 06/10/18 TIME: 11:49 Assessment/Plan VTE Prophylaxis Risk score (from Ns)>0 risk: 4 SCD applied (from Ns): Yes Pharmacological prophylaxis: LMWH Lines/Catheters Urinary Cath still in place: No Assessment/Plan Hospital Course 57 yo male with h/o diastolic CHF, hypertension, obesity who was admitted to [facility] 05/04/18 for acute respiratory failure 2/2 pneumonia and acute diastolic CHF. He had prolonged ICU course with intubation and required tracheostomy. He has been transferred to [facility] now for swallow evaluation and consideration of possible PEG tube Acute respiratory failure: - s/p tracheostomy -Pulmonary consultation appreciated - Pulmonary toilet Dysphagia: -PEG tube now placed Diastolic CHF: - Continue lasix 20 mg IV daily Hypertension: - Continue amlodipine 5 mg daily, Toprol 25 daily, clonidine patch 0.1 mg. Monitor and titrate BP meds Pneumonia: - Has completed course of antibiotics, will hold further abx and monitor Agitation with chronic encephalopathy -Klonopin started, increased dose today as patient continues to be agitated -Psychiatry consultation obtained -Patient continues to require restraints today History of acute kidney injury-resolved -Nephrology following Prophylaxis: Lovenox DC planning: DC to subacute once off restraints Result Diagram: 06/09/18 0547 06/10/18 0749 Results 24hrs Laboratory Tests Test 06/10/18 07:49 Sodium Level 146 H Potassium Level 4.0 Chloride Level 108 Carbon Dioxide Level 29 Anion Gap 9 Blood Urea Nitrogen 43 H Creatinine 0.85 Est Glomerular Filtrat Rate mL/min > 60 Glucose Level 125 Calcium Level 9.7 Subjective 24 Hr Interval Summary Constitutional: disoriented Exam/Review of Systems Exam Vitals Vital Signs Date Temp Pulse Resp B/P (MAP) Pulse Ox O2 O2 Flow FiO2 Time Delivery Rate 06/10/18 97 10.0 11:18 06/10/18 98 20 Aerosol 11:16 Non Rebreather Mask 06/10/18 98.0 101/65 09:57 (77) 06/10/18 40 08:10 Intake and Output 06/09/18 06/09/18 06/10/18 1515:00 23:00 07:00 IntakeIntake Total 900 ml 1000 ml BalanceBalance 900 ml 1000 ml Psych: anxiety, confusion Respiratory: clear to auscultation Cardiovascular: regular rate and rhythm Gastrointestinal: soft; No distended Musculoskeletal: nl extremities to inspection Results Results 24hrs Laboratory Tests Test 06/10/18 07:49 Sodium Level 146 H Potassium Level 4.0 Chloride Level 108 Carbon Dioxide Level 29 Anion Gap 9 Blood Urea Nitrogen 43 H Creatinine 0.85 Est Glomerular Filtrat Rate mL/min > 60 Glucose Level 125 Calcium Level 9.7 Medications Medication Current Medications IV Flush (NS 3 ml) 3 ml PER PROTOCOL IV ; Start 06/04/18 at 16:00 Acetaminophen/ Hydrocodone Bitart ([place] (5/325)) 2 tab Q6H PRN PO .SEVERE PAIN 7-10 Last administered on 06/05/18 04:28; Admin Dose 2 TAB; Start 06/04/18 at 16:00 Amlodipine Besylate (Norvasc) 5 mg DAILY PO Last administered on 06/10/18 08:22; Admin Dose 5 MG; Start 06/05/18 at 09:00 Metoprolol Succinate (Toprol Xl) 25 mg DAILY PO Last administered on 06/10/18 08:23; Admin Dose 25 MG; Start 06/05/18 at 09:00 Ondansetron HCl (Zofran Inj) 4 mg Q6H PRN IV NAUSEA AND/OR VOMITING; Start 06/04/18 at 16:00 Clonidine HCl (Catapres-Tts 1 Patch) 1 patch Q7D TRANSDERM Last administered on 06/05/18 12:55; Admin Dose 1 PATCH; Start 06/05/18 at 13:00 Lorazepam (Ativan) 1 mg Q8H PRN IV ANXIETY Last administered on 06/05/18 12: 08; Admin Dose 1 MG; Start 06/05/18 at 11:30 Acetaminophen (Tylenol Tab) 650 mg Q6H PRN PO MILD PAIN(1-3)OR ELEVATED TEMP Last administered on 06/09/18 23:32; Admin Dose 650 MG; Start 06/06/18 at 14:50 Levalbuterol (Xopenex Neb) 0.63 mg Q8H RESP THERAPY HHN Last administered on 06/10/18 08:07; Admin Dose 0.63 MG; Start 06/07/18 at 00:00 Furosemide (Lasix) 20 mg DAILY GTB Last administered on 06/10/18 08:23; Admin Dose 20 MG; Start 06/09/18 at 12:00 Clonazepam (Klonopin) 0.5 mg BID PO Last administered on 06/10/18at 08:22; Admin Dose 0.5 MG; Start 06/09/18 at 13:00 LAUREANO STEARNS Jun 10, 2018 11:50
--- NOTE | 2018-06-10 13:11 | CONS ---
Consult Date/Type/Reason Admit Date/Time Jun 04, 2018 at 14:09 Initial Consult Date 06/05/18 Type of Consult Pulmonary Requesting Provider: LAUREANO STEARNS Date/Time of Note DATE: 06/10/18 TIME: 13:11 Subjective Remains stable. Objective Vital Signs Date Temp Pulse Resp B/P (MAP) Pulse Ox O2 O2 Flow FiO2 Time Delivery Rate 06/10/18 98.3 101 20 103/58 96 12:42 (73) 06/10/18 10.0 11:18 06/10/18 Aerosol 11:16 Non Rebreather Mask 06/10/18 40 08:10 Intake and Output 06/09/18 06/09/18 06/10/18 1515:00 23:00 07:00 IntakeIntake Total 900 ml 1000 ml BalanceBalance 900 ml 1000 ml Exam GENERAL: trach peg. VITAL SIGNS: per chart NECK: Supple. No JVD or lymphadenopathy. CARDIAC EXAM: S1, S2. No added sounds or murmurs. CHEST: few rales. ABDOMEN: Soft, nontender. No guarding or rebound. EXTREMITIES: No cyanosis, clubbing or edema. NEUROLOGIC: Generalized weakness. No focal deficits. Vent Setting Fraction of Inspired Oxygen pe: 40 Results/Medications Result Diagram: 06/09/18 0547 06/10/18 0749 Results 24 hrs Laboratory Tests Test 06/10/18 07:49 Sodium Level 146 H Potassium Level 4.0 Chloride Level 108 Carbon Dioxide Level 29 Anion Gap 9 Blood Urea Nitrogen 43 H Creatinine 0.85 Est Glomerular Filtrat Rate mL/min > 60 Glucose Level 125 Calcium Level 9.7 Medications Current Medications IV Flush (NS 3 ml) 3 ml PER PROTOCOL IV ; Start 06/04/18 at 16:00 Acetaminophen/ Hydrocodone Bitart ([place] (5/325)) 2 tab Q6H PRN PO .SEVERE PAIN 7-10 Last administered on 06/05/18at 04:28; Admin Dose 2 TAB; Start 06/04/18 at 16:00 Amlodipine Besylate (Norvasc) 5 mg DAILY PO Last administered on 06/10/18at 08:22; Admin Dose 5 MG; Start 06/05/18 at 09:00 Metoprolol Succinate (Toprol Xl) 25 mg DAILY PO Last administered on 06/10/18at 08:23; Admin Dose 25 MG; Start 06/05/18 at 09:00 Ondansetron HCl (Zofran Inj) 4 mg Q6H PRN IV NAUSEA AND/OR VOMITING; Start 06/04/18 at 16:00 Clonidine HCl (Catapres-Tts 1 Patch) 1 patch Q7D TRANSDERM Last administered on 06/05/18 12:55; Admin Dose 1 PATCH; Start 06/05/18 at 13:00 Lorazepam (Ativan) 1 mg Q8H PRN IV ANXIETY Last administered on 06/05/18 12:08; Admin Dose 1 MG; Start 06/05/18 at 11:30 Acetaminophen (Tylenol Tab) 650 mg Q6H PRN PO MILD PAIN(1-3)OR ELEVATED TEMP Last administered on 06/09/18 23:32; Admin Dose 650 MG; Start 06/06/18 at 14:50 Levalbuterol (Xopenex Neb) 0.63 mg Q8H RESP THERAPY HHN Last administered on 06/10/18 08:07; Admin Dose 0.63 MG; Start 06/07/18 at 00:00 Furosemide (Lasix) 20 mg DAILY GTB Last administered on 06/10/18 08:23; Admin Dose 20 MG; Start 06/09/18 at 12:00 Clonazepam (Klonopin) 1 mg BID PO ; Start 06/10/18 at 21:00 Assessment/Plan Hospital Course (Demo Recall) IMP: 1. Chronic Respiratory Failure s/p tracheotomy 2. History of Multilobar pneumonia --now with copious secretions 3. HFpEF 4. s/p AGUS 5. Encephalopathy--likely toxic-metabolic RECS: 1. Aggressive CPT/suctioning 2. Bronchodilators 3. Cont trach collar 4. ST eval; eventual PMV 5. Dietary consult 6. DVT prophylaxis 7. s/p PEG placement. Continue tube feeding as tolerated transfer to SNF [facility] Jun 10, 2018 13:11
--- NOTE | 2018-06-10 20:51 | CONS ---
Assessment/Plan Assessment/Plan Assessment/Plan 57 yo Male with 1) Acute respiratory failure, S/p trach 2) CHF- significantly improved 3) Hx of B/l PNA S/p Treatment 4) Hx of AGUS with Recovery 5) Pre Renal Azotemia- stable improving BUN Improved, Cr stable, Na improving slowly to goal. Cont low dose lasix Cont free H20 flushes q4hr Repeat labs in am Acute Rehab placement Consultation Date/Type/Reason Admit Date/Time Jun 04, 2018 at 14:09 Type of Consult Nephrology Date/Time of Note DATE: 06/10/18 TIME: 20:49 Hx of Present Illness No new complaints Pending placement to sub acute Possible swallow eval tomorrow. good UO no [place] Constitutional: requiring O2 Exam/Review of Systems Vital Signs Vitals Vital Signs Date Temp Pulse Resp B/P (MAP) Pulse Ox O2 O2 Flow FiO2 Time Delivery Rate 06/10/18 85 20:43 06/10/18 98 5.0 28 20:31 06/10/18 18 Aerosol 20:31 T Tube 06/10/18 99.2 115/73 20:06 (87) Intake and Output 06/09/18 06/09/18 06/10/18 1515:00 23:00 07:00 IntakeIntake Total 900 ml 1000 ml BalanceBalance 900 ml 1000 ml Exam Constitutional: No distress ENMT: mucosa pink and moist Neck: No jvd Respiratory: clear to auscultation; No diminished breath sounds, No labored breathing Cardiovascular: regular rate and rhythm; No edema Gastrointestinal: soft, non-tender; No rebound or guarding Extremities: No edema Neurological: confused Skin: nl turgor; No rash or lesions, No diaphoresis Labs Result Diagram: 06/09/18 0547 06/10/18 0749 Results 24hrs Laboratory Tests Test 06/10/18 07:49 Sodium Level 146 H Potassium Level 4.0 Chloride Level 108 Carbon Dioxide Level 29 Anion Gap 9 Blood Urea Nitrogen 43 H Creatinine 0.85 Est Glomerular Filtrat Rate mL/min > 60 Glucose Level 125 Calcium Level 9.7 Medications Medications Current Medications IV Flush (NS 3 ml) 3 ml PER PROTOCOL IV ; Start 06/04/18 at 16:00 Acetaminophen/ Hydrocodone Bitart ([place] (5/325)) 2 tab Q6H PRN PO .SEVERE PAIN 7-10 Last administered on 06/05/18 04:28; Admin Dose 2 TAB; Start 06/04/18 at 16:00 Amlodipine Besylate (Norvasc) 5 mg DAILY PO Last administered on 06/10/18 08:22; Admin Dose 5 MG; Start 06/05/18 at 09:00 Metoprolol Succinate (Toprol Xl) 25 mg DAILY PO Last administered on 06/10/18 08:23; Admin Dose 25 MG; Start 06/05/18 at 09:00 Ondansetron HCl (Zofran Inj) 4 mg Q6H PRN IV NAUSEA AND/OR VOMITING; Start 06/04/18 at 16:00 Clonidine HCl (Catapres-Tts 1 Patch) 1 patch Q7D TRANSDERM Last administered on 06/05/18 12:55; Admin Dose 1 PATCH; Start 06/05/18 at 13:00 Lorazepam (Ativan) 1 mg Q8H PRN IV ANXIETY Last administered on 06/05/18 12:08; Admin Dose 1 MG; Start 06/05/18 at 11:30 Acetaminophen (Tylenol Tab) 650 mg Q6H PRN PO MILD PAIN(1-3)OR ELEVATED TEMP Last administered on 06/09/18 23:32; Admin Dose 650 MG; Start 06/06/18 at 14:50 Levalbuterol (Xopenex Neb) 0.63 mg Q8H RESP THERAPY HHN Last administered on 06/10/18 16:10; Admin Dose 0.63 MG; Start 06/07/18 at 00:00 Furosemide (Lasix) 20 mg DAILY GTB Last administered on 06/10/18 08:23; Admin Dose 20 MG; Start 06/09/18 at 12:00 Clonazepam (Klonopin) 1 mg BID PO ; Start 06/10/18 at 21:00 CHRIS SALAZAR MD Jun 10, 2018 20:51
[2018-06-11] VITALS (14 sets, daily range): BP systolic 90–109; BP diastolic 61–68; PULSE 88–106; RESP 18–20
[2018-06-11] MEDS: LEVALBUTEROL (NEB) 0.63 MG/3 ML AMP HHN SCH ×3 (00:07→15:01)
[2018-06-11] MEDS: FUROSEMIDE 20 MG TAB GTB SCH (08:54)
[2018-06-11] MEDS: METOPROLOL (XL) 25 MG TAB PO SCH (08:55)
[2018-06-11] MEDS: clonAZEPAM 0.5 MG TAB PO SCH ×2 (08:55→21:16)
[2018-06-11] MEDS: AMLODIPINE 5 MG TAB PO SCH (08:55)
--- NOTE | 2018-06-11 09:49 | PSY ---
Date/Time of Note Date/Time of Note DATE: 06/11/18 TIME: 09:47 Psychiatric Subjective Eval Consent Pt consented to telemedicine: No Subjective Evaluation Patient location: inpatient History of present illness Patient is 57 year old male with underlying history of CHF, hypertension, obesity tracheostomy. He is non verbal, with tracheostomy, but currently calm . Past psychiatric history Unknown Hospitalization: other Allergies: Coded Allergies: Penicillins (Verified Allergy, Unknown, 06/04/18) Substance Abuse Substance abuse history: No Prior substance abuse treatmen: No Social History Marital status: other DPA/Conservatorship: No Psychiatric Objective Eval Review of Systems: Review of Systems: Not Applicable Physical Examination: Energy: Other Mental Status Examination: Eye Contact: Fair Behavior: Guarded Speech: Other (non verbal) AFFECT: Anxious Mood: Anxious Orientation: x2 Laboratory Results Laboratory Tests Test 06/10/18 07:49 Sodium Level 146 mmol/L Potassium Level 4.0 mmol/L Chloride Level 108 mmol/L Carbon Dioxide Level 29 mmol/L Anion Gap 9 Blood Urea Nitrogen 43 mg/dl Creatinine 0.85 mg/dl Est Glomerular Filtrat Rate mL/min > 60 mL/min Glucose Level 125 mg/dl Calcium Level 9.7 mg/dl Assessment and Plan Recommendation/Plan Multiple antipsychotics: No Discharge Disposition: Other Legal Status: Voluntary (Does not meet criteria for 5150) JULES BERNARD NP Jun 11, 2018 09:49
--- NOTE | 2018-06-11 11:08 | PN ---
Date/Time of Note Date/Time of Note DATE: 06/11/18 TIME: 11:07 Assessment/Plan VTE Prophylaxis Risk score (from Ns)>0 risk: 6 SCD applied (from Ns): Yes Pharmacological prophylaxis: LMWH Lines/Catheters Urinary Cath still in place: No Assessment/Plan Hospital Course 57 yo male with h/o diastolic CHF, hypertension, obesity who was admitted to [facility] 05/04/18 for acute respiratory failure 2/2 pneumonia and acute diastolic CHF. He had prolonged ICU course with intubation and required tracheostomy. He has been transferred to [facility] now for swallow evaluation and consideration of possible PEG tube Acute respiratory failure: - s/p tracheostomy -Pulmonary consultation appreciated - Pulmonary toilet Dysphagia: -PEG tube now placed Diastolic CHF: - Continue lasix 20 mg IV daily Hypertension: - Continue amlodipine 5 mg daily, Toprol 25 daily, clonidine patch 0.1 mg. Monitor and titrate BP meds Pneumonia: - Has completed course of antibiotics, will hold further abx and monitor Agitation with chronic encephalopathy -Continue Klonopin -Psychiatry consultation obtained -Patient continues to require restraints today History of acute kidney injury-resolved -Nephrology following Prophylaxis: Lovenox DC planning: DC to subacute once off restraints Result Diagram: 06/09/18 0547 06/10/18 0749 Subjective 24 Hr Interval Summary Psychological: anxiety Exam/Review of Systems Exam Vitals Vital Signs Date Temp Pulse Resp B/P (MAP) Pulse Ox O2 O2 Flow FiO2 Time Delivery Rate 06/11/18 98 5.0 28 09:09 06/11/18 95 20 Aerosol 09:08 T Tube 06/11/18 97.7 100/66 03:08 (77) Intake and Output 06/10/18 06/10/18 06/11/18 1515:00 23:00 07:00 IntakeIntake Total 900 ml 900 ml BalanceBalance 900 ml 900 ml Psych: confusion Respiratory: clear to auscultation Cardiovascular: regular rate and rhythm Gastrointestinal: soft; No distended Musculoskeletal: nl extremities to inspection Medications Medication Current Medications IV Flush (NS 3 ml) 3 ml PER PROTOCOL IV ; Start 06/04/18 at 16:00 Acetaminophen/ Hydrocodone Bitart ([place] (5/325)) 2 tab Q6H PRN PO .SEVERE PAIN 7-10 Last administered on 06/05/18at 04:28; Admin Dose 2 TAB; Start 06/04/18 at 16:00 Amlodipine Besylate (Norvasc) 5 mg DAILY PO Last administered on 06/11/18 08:55; Admin Dose 5 MG; Start 06/05/18 at 09:00 Metoprolol Succinate (Toprol Xl) 25 mg DAILY PO Last administered on 06/11/18 08:55; Admin Dose 25 MG; Start 06/05/18 at 09:00 Ondansetron HCl (Zofran Inj) 4 mg Q6H PRN IV NAUSEA AND/OR VOMITING; Start 06/04/18 at 16:00 Clonidine HCl (Catapres-Tts 1 Patch) 1 patch Q7D TRANSDERM Last administered on 06/05/18 12:55; Admin Dose 1 PATCH; Start 06/05/18 at 13:00 Lorazepam (Ativan) 1 mg Q8H PRN IV ANXIETY Last administered on 06/05/18 12:08; Admin Dose 1 MG; Start 06/05/18 at 11:30 Acetaminophen (Tylenol Tab) 650 mg Q6H PRN PO MILD PAIN(1-3)OR ELEVATED TEMP Last administered on 06/09/18 23:32; Admin Dose 650 MG; Start 06/06/18 at 14:50 Levalbuterol (Xopenex Neb) 0.63 mg Q8H RESP THERAPY HHN Last administered on 06/11/18 09:05; Admin Dose 0.63 MG; Start 06/07/18 at 00:00 Furosemide (Lasix) 20 mg DAILY GTB Last administered on 06/11/18 08:54; Admin Dose 20 MG; Start 06/09/18 at 12:00 Clonazepam (Klonopin) 1 mg BID PO Last administered on 06/11/18 08:55; Admin Dose 1 MG; Start 06/10/18 at 21:00 LAUREANO STEARNS Jun 11, 2018 11:08
--- NOTE | 2018-06-11 12:31 | CONS ---
Consult Date/Type/Reason Admit Date/Time Jun 04, 2018 at 14:09 Initial Consult Date 06/05/18 Type of Consult Pulmonary Requesting Provider: LAUREANO STEARNS Date/Time of Note DATE: 06/11/18 TIME: 12:29 Subjective Patient comfortable this morning. No new events. Objective Vital Signs Date Temp Pulse Resp B/P (MAP) Pulse Ox O2 O2 Flow FiO2 Time Delivery Rate 06/11/18 92 20 97 Aerosol 5.0 28 12:14 T Tube 06/11/18 99.0 94/66 (75) 12:00 Intake and Output 06/10/18 06/10/18 06/11/18 1515:00 23:00 07:00 IntakeIntake Total 900 ml 900 ml BalanceBalance 900 ml 900 ml Exam GENERAL: trach peg. VITAL SIGNS: per chart NECK: Supple. No JVD or lymphadenopathy. CARDIAC EXAM: S1, S2. No added sounds or murmurs. CHEST: few rales. ABDOMEN: Soft, nontender. No guarding or rebound. EXTREMITIES: No cyanosis, clubbing or edema. NEUROLOGIC: Generalized weakness Vent Setting Fraction of Inspired Oxygen pe: 28 Results/Medications Result Diagram: 06/09/18 0547 06/10/18 0749 Medications Current Medications IV Flush (NS 3 ml) 3 ml PER PROTOCOL IV ; Start 06/04/18 at 16:00 Acetaminophen/ Hydrocodone Bitart ([place] (5/325)) 2 tab Q6H PRN PO .SEVERE PAIN 7-10 Last administered on 06/05/18at 04:28; Admin Dose 2 TAB; Start 06/04/18 at 16:00 Amlodipine Besylate (Norvasc) 5 mg DAILY PO Last administered on 06/11/18at 08:55; Admin Dose 5 MG; Start 06/05/18 at 09:00 Metoprolol Succinate (Toprol Xl) 25 mg DAILY PO Last administered on 06/11/18at 08:55; Admin Dose 25 MG; Start 06/05/18 at 09:00 Ondansetron HCl (Zofran Inj) 4 mg Q6H PRN IV NAUSEA AND/OR VOMITING; Start 06/04/18 at 16:00 Clonidine HCl (Catapres-Tts 1 Patch) 1 patch Q7D TRANSDERM Last administered on 06/05/18at 12:55; Admin Dose 1 PATCH; Start 06/05/18 at 13:00 Lorazepam (Ativan) 1 mg Q8H PRN IV ANXIETY Last administered on 06/05/18 12:08; Admin Dose 1 MG; Start 06/05/18 at 11:30 Acetaminophen (Tylenol Tab) 650 mg Q6H PRN PO MILD PAIN(1-3)OR ELEVATED TEMP Last administered on 06/09/18at 23:32; Admin Dose 650 MG; Start 06/06/18 at 14:50 Levalbuterol (Xopenex Neb) 0.63 mg Q8H RESP THERAPY HHN Last administered on 06/11/18 09:05; Admin Dose 0.63 MG; Start 06/07/18 at 00:00 Furosemide (Lasix) 20 mg DAILY GTB Last administered on 06/11/18 08:54; Admin Dose 20 MG; Start 06/09/18 at 12:00 Clonazepam (Klonopin) 1 mg BID PO Last administered on 06/11/18 08:55; Admin Dose 1 MG; Start 06/10/18 at 21:00 Assessment/Plan Hospital Course (Demo Recall) IMP: 1. Chronic Respiratory Failure s/p tracheotomy 2. History of Multilobar pneumonia --now with copious secretions 3. HFpEF 4. s/p AGUS 5. Encephalopathy--likely toxic-metabolic RECS: 1. Aggressive CPT/suctioning 2. Bronchodilators 3. Cont trach collar 4. ST eval; eventual PMV 5. Dietary consult 6. DVT prophylaxis 7. s/p PEG placement. dc planning. MARIO HARMON MD, [facility] Jun 11, 2018 12:31
[2018-06-11] MEDS: QUETIAPINE 25 MG TAB GTB SCH ×2 (13:04→21:16)
--- NOTE | 2018-06-11 21:06 | CONS ---
Assessment/Plan Assessment/Plan Assessment/Plan 57 yo Male with 1) Acute respiratory failure, S/p trach 2) CHF- significantly improved 3) Hx of B/l PNA S/p Treatment 4) Hx of AGUS with Recovery 5) Pre Renal Azotemia- stable improving No labs today F/u labs in am BUN Improved, Cr stable, Na improving slowly to goal. Cont low dose lasix Cont free H20 flushes q4hr Acute Rehab placement Consultation Date/Type/Reason Admit Date/Time Jun 04, 2018 at 14:09 Type of Consult Nephrology Date/Time of Note DATE: 06/11/18 TIME: 21:05 Hx of Present Illness getting better every day, NO new complaints Exam/Review of Systems Vital Signs Vitals Vital Signs Date Temp Pulse Resp B/P (MAP) Pulse Ox O2 O2 Flow FiO2 Time Delivery Rate 06/11/18 5.0 20:32 06/11/18 95 20:16 06/11/18 98.0 18 104/63 92 Trach 20:00 (77) Collar 06/11/18 28 19:28 Intake and Output 06/10/18 06/10/18 06/11/18 1515:00 23:00 07:00 IntakeIntake Total 900 ml 900 ml BalanceBalance 900 ml 900 ml Exam Constitutional: alert; No distress Eyes: EOMI Neck: No jvd Respiratory: wheezing (Rt); No diminished breath sounds, No intercostal retraction Cardiovascular: regular rate and rhythm; No edema Gastrointestinal: soft, other (PEG); No distended Extremities: No edema Neurological: [employer] II-XII intact; No lethargic Skin: No diaphoresis Labs Result Diagram: 06/09/18 0547 06/10/18 0749 Medications Medications Current Medications IV Flush (NS 3 ml) 3 ml PER PROTOCOL IV ; Start 06/04/18 at 16:00 Acetaminophen/ Hydrocodone Bitart ([place] (5/325)) 2 tab Q6H PRN PO .SEVERE PAIN 7-10 Last administered on 06/05/18at 04:28; Admin Dose 2 TAB; Start 06/04/18 at 16:00 Amlodipine Besylate (Norvasc) 5 mg DAILY PO Last administered on 06/11/18at 08:55; Admin Dose 5 MG; Start 06/05/18 at 09:00 Metoprolol Succinate (Toprol Xl) 25 mg DAILY PO Last administered on 06/11/18 08:55; Admin Dose 25 MG; Start 06/05/18 at 09:00 Ondansetron HCl (Zofran Inj) 4 mg Q6H PRN IV NAUSEA AND/OR VOMITING; Start 06/04/18 at 16:00 Clonidine HCl (Catapres-Tts 1 Patch) 1 patch Q7D TRANSDERM Last administered on 06/05/18 12:55; Admin Dose 1 PATCH; Start 06/05/18 at 13:00 Lorazepam (Ativan) 1 mg Q8H PRN IV ANXIETY Last administered on 06/05/18 12:08; Admin Dose 1 MG; Start 06/05/18 at 11:30 Acetaminophen (Tylenol Tab) 650 mg Q6H PRN PO MILD PAIN(1-3)OR ELEVATED TEMP Last administered on 06/09/18 23:32; Admin Dose 650 MG; Start 06/06/18 at 14:50 Levalbuterol (Xopenex Neb) 0.63 mg Q8H RESP THERAPY HHN Last administered on 06/11/18 15:01; Admin Dose 0.63 MG; Start 06/07/18 at 00:00 Furosemide (Lasix) 20 mg DAILY GTB Last administered on 06/11/18 08:54; Admin Dose 20 MG; Start 06/09/18 at 12:00 Clonazepam (Klonopin) 1 mg BID PO Last administered on 06/11/18 08:55; Admin Dose 1 MG; Start 06/10/18 at 21:00 Quetiapine Fumarate (Seroquel) 25 mg BID GTB Last administered on 06/11/18 13:04; Admin Dose 25 MG; Start 06/11/18 at 13:00 CHRIS SALAZAR MD Jun 11, 2018 21:06
[2018-06-12] VITALS (14 sets, daily range): BP systolic 96–107; BP diastolic 54–71; PULSE 75–98; RESP 18–19
[2018-06-12] MEDS: LEVALBUTEROL (NEB) 0.63 MG/3 ML AMP HHN SCH ×3 (00:29→16:22)
[2018-06-12] MEDS: clonAZEPAM 0.5 MG TAB PO SCH ×2 (08:43→21:54)
[2018-06-12] MEDS: AMLODIPINE 5 MG TAB PO SCH (08:44)
[2018-06-12] MEDS: QUETIAPINE 25 MG TAB GTB SCH ×2 (08:44→21:54)
[2018-06-12] MEDS: METOPROLOL (XL) 25 MG TAB PO SCH (08:44)
[2018-06-12] MEDS: FUROSEMIDE 20 MG TAB GTB SCH (08:44)
[2018-06-12] MEDS ORDERED: BARIUM SULFATE 135 ML (E-Z HD) PO ONE (10:38)
--- NOTE | 2018-06-12 12:44 | CONS ---
Consult Date/Type/Reason Admit Date/Time Jun 04, 2018 at 14:09 Initial Consult Date 06/05/18 Type of Consult Pulmonary Requesting Provider: LAUREANO STEARNS Date/Time of Note DATE: 06/12/18 TIME: 12:43 Subjective less agitated. Objective Vital Signs Date Temp Pulse Resp B/P (MAP) Pulse Ox O2 O2 Flow FiO2 Time Delivery Rate 06/12/18 88 12:00 06/12/18 98.4 18 96/59 (71) 91 12:00 06/12/18 Aerosol 5.0 28 11:30 Mask Intake and Output 06/11/18 06/11/18 06/12/18 1515:00 23:00 07:00 IntakeIntake Total 900 ml 1050 ml BalanceBalance 900 ml 1050 ml Exam GENERAL: trach peg. VITAL SIGNS: per chart NECK: Supple. No JVD or lymphadenopathy. CARDIAC EXAM: S1, S2. No added sounds or murmurs. CHEST: few rales. ABDOMEN: Soft, nontender. No guarding or rebound. EXTREMITIES: No cyanosis, clubbing or edema. NEUROLOGIC: Generalized weakness Vent Setting Fraction of Inspired Oxygen pe: 28 Results/Medications Result Diagram: 06/09/18 0547 06/10/18 0749 Medications Current Medications IV Flush (NS 3 ml) 3 ml PER PROTOCOL IV ; Start 06/04/18 at 16:00 Acetaminophen/ Hydrocodone Bitart ([place] (5/325)) 2 tab Q6H PRN PO .SEVERE PAIN 7-10 Last administered on 06/05/18at 04:28; Admin Dose 2 TAB; Start 06/04/18 at 16:00 Amlodipine Besylate (Norvasc) 5 mg DAILY PO Last administered on 06/12/18at 08:44; Admin Dose 5 MG; Start 06/05/18 at 09:00 Metoprolol Succinate (Toprol Xl) 25 mg DAILY PO Last administered on 06/12/18at 08:44; Admin Dose 25 MG; Start 06/05/18 at 09:00 Ondansetron HCl (Zofran Inj) 4 mg Q6H PRN IV NAUSEA AND/OR VOMITING; Start 06/04/18 at 16:00 Clonidine HCl (Catapres-Tts 1 Patch) 1 patch Q7D TRANSDERM Last administered on 06/05/18at 12:55; Admin Dose 1 PATCH; Start 06/05/18 at 13:00 Lorazepam (Ativan) 1 mg Q8H PRN IV ANXIETY Last administered on 06/05/18 12:08; Admin Dose 1 MG; Start 06/05/18 at 11:30 Acetaminophen (Tylenol Tab) 650 mg Q6H PRN PO MILD PAIN(1-3)OR ELEVATED TEMP Last administered on 06/09/18 23:32; Admin Dose 650 MG; Start 06/06/18 at 14:50 Levalbuterol (Xopenex Neb) 0.63 mg Q8H RESP THERAPY HHN Last administered on 06/12/18 08:02; Admin Dose 0.63 MG; Start 06/07/18 at 00:00 Furosemide (Lasix) 20 mg DAILY GTB Last administered on 06/12/18 08:44; Admin Dose 20 MG; Start 06/09/18 at 12:00 Clonazepam (Klonopin) 1 mg BID PO Last administered on 06/12/18 08:43; Admin Dose 1 MG; Start 06/10/18 at 21:00 Quetiapine Fumarate (Seroquel) 25 mg BID GTB Last administered on 06/12/18 08:44; Admin Dose 25 MG; Start 06/11/18 at 13:00 Assessment/Plan Hospital Course (Demo Recall) IMP: 1. Chronic Respiratory Failure s/p tracheotomy 2. History of Multilobar pneumonia --now with copious secretions 3. HFpEF 4. s/p AGUS 5. Encephalopathy--likely toxic-metabolic RECS: 1. Aggressive CPT/suctioning 2. Bronchodilators 3. Cont trach collar 4. ST eval; eventual PMV 5. Dietary consult 6. DVT prophylaxis 7. s/p PEG placement. 8. Seroquel for agitation dc planning. MARIO HARMON MD, [facility] Jun 12, 2018 12:44
[2018-06-12] MEDS: CLONIDINE 0.1 MG/24 HR PATCH TRANSDERM SCH (13:07)
--- NOTE | 2018-06-12 16:43 | PN ---
Date/Time of Note Date/Time of Note DATE: 06/12/18 TIME: 16:43 Assessment/Plan VTE Prophylaxis Risk score (from Ns)>0 risk: 7 SCD applied (from Ns): Yes Pharmacological prophylaxis: LMWH Lines/Catheters Urinary Cath still in place: No Assessment/Plan Hospital Course 57 yo male with h/o diastolic CHF, hypertension, obesity who was admitted to [facility] 05/04/18 for acute respiratory failure 2/2 pneumonia and acute diastolic CHF. He had prolonged ICU course with intubation and required tracheostomy. He has been transferred to [facility] now for swallow evaluation and consideration of possible PEG tube Acute respiratory failure: - s/p tracheostomy -Pulmonary consultation appreciated - Pulmonary toilet Dysphagia: -PEG tube now placed Diastolic CHF: - Continue lasix 20 mg IV daily Hypertension: - Continue amlodipine 5 mg daily, Toprol 25 daily, clonidine patch 0.1 mg. Monitor and titrate BP meds Pneumonia: - Has completed course of antibiotics, will hold further abx and monitor Agitation with chronic encephalopathy -Continue Klonopin -Psychiatry consultation obtained -Patient continues to require restraints today History of acute kidney injury-resolved -Nephrology following Prophylaxis: Lovenox DC planning: DC to subacute once off restraints Result Diagram: 06/09/18 0547 06/10/18 0749 Subjective 24 Hr Interval Summary Constitutional: disoriented Exam/Review of Systems Exam Vitals Vital Signs Date Temp Pulse Resp B/P (MAP) Pulse Ox O2 O2 Flow FiO2 Time Delivery Rate 06/12/18 86 18 96 Aerosol 5.0 28 16:11 Mask 06/12/18 98.6 107/63 16:00 (78) Intake and Output 06/11/18 06/11/18 06/12/18 1515:00 23:00 07:00 IntakeIntake Total 900 ml 1050 ml BalanceBalance 900 ml 1050 ml Psych: confusion Respiratory: clear to auscultation Cardiovascular: regular rate and rhythm Gastrointestinal: soft; No distended Musculoskeletal: nl extremities to inspection Medications Medication Current Medications IV Flush (NS 3 ml) 3 ml PER PROTOCOL IV ; Start 06/04/18 at 16:00 Acetaminophen/ Hydrocodone Bitart ([place] (5/325)) 2 tab Q6H PRN PO .SEVERE PAIN 7-10 Last administered on 06/05/18at 04:28; Admin Dose 2 TAB; Start 06/04/18 at 16:00 Amlodipine Besylate (Norvasc) 5 mg DAILY PO Last administered on 06/12/18 08:44; Admin Dose 5 MG; Start 06/05/18 at 09:00 Metoprolol Succinate (Toprol Xl) 25 mg DAILY PO Last administered on 06/12/18 08:44; Admin Dose 25 MG; Start 06/05/18 at 09:00 Ondansetron HCl (Zofran Inj) 4 mg Q6H PRN IV NAUSEA AND/OR VOMITING; Start 06/04/18 at 16:00 Clonidine HCl (Catapres-Tts 1 Patch) 1 patch Q7D TRANSDERM Last administered on 06/12/18 13:07; Admin Dose 1 PATCH; Start 06/05/18 at 13:00 Lorazepam (Ativan) 1 mg Q8H PRN IV ANXIETY Last administered on 06/05/18 12:08; Admin Dose 1 MG; Start 06/05/18 at 11:30 Acetaminophen (Tylenol Tab) 650 mg Q6H PRN PO MILD PAIN(1-3)OR ELEVATED TEMP Last administered on 06/09/18 23:32; Admin Dose 650 MG; Start 06/06/18 at 14:50 Levalbuterol (Xopenex Neb) 0.63 mg Q8H RESP THERAPY HHN Last administered on 06/12/18 16:22; Admin Dose 0.63 MG; Start 06/07/18 at 00:00 Furosemide (Lasix) 20 mg DAILY GTB Last administered on 06/12/18 08:44; Admin Dose 20 MG; Start 06/09/18 at 12:00 Clonazepam (Klonopin) 1 mg BID PO Last administered on 06/12/18 08:43; Admin Dose 1 MG; Start 06/10/18 at 21:00 Quetiapine Fumarate (Seroquel) 50 mg BID GTB ; Start 06/12/18 at 21:00 LAUREANO STEARNS Jun 12, 2018 16:43
[2018-06-13] VITALS (14 sets, daily range): BP systolic 88–101; BP diastolic 53–66; PULSE 72–88; RESP 18–20
[2018-06-13] MEDS: LEVALBUTEROL (NEB) 0.63 MG/3 ML AMP HHN SCH ×4 (00:28→23:31)
[2018-06-13] MEDS: MAGNESIUM HYDROXIDE 30ML CUP PO PRN (06:12)
[2018-06-13] MEDS: clonAZEPAM 0.5 MG TAB PO SCH ×2 (08:26→21:24)
[2018-06-13] MEDS: QUETIAPINE 25 MG TAB GTB SCH ×2 (08:27→21:24)
[2018-06-13] MEDS: AMLODIPINE 5 MG TAB PO SCH (08:27)
[2018-06-13] MEDS: FUROSEMIDE 20 MG TAB GTB SCH (08:27)
[2018-06-13] MEDS: METOPROLOL (XL) 25 MG TAB PO SCH (08:27)
--- NOTE | 2018-06-13 12:11 | PN ---
Date/Time of Note Date/Time of Note DATE: 06/13/18 TIME: 12:09 Assessment/Plan VTE Prophylaxis Risk score (from Ns)>0 risk: 8 SCD applied (from Ns): Yes Pharmacological prophylaxis: LMWH Lines/Catheters Urinary Cath still in place: No Assessment/Plan Hospital Course 57 yo male with h/o diastolic CHF, hypertension, obesity who was admitted to [facility] 05/04/18 for acute respiratory failure 2/2 pneumonia and acute diastolic CHF. He had prolonged ICU course with intubation and required tracheostomy. He has been transferred to [facility] now for swallow evaluation and consideration of possible PEG tube Acute respiratory failure: - s/p tracheostomy -Pulmonary consultation appreciated - Pulmonary toilet Dysphagia: -PEG tube now placed Diastolic CHF: - Continue lasix 20 mg IV daily Hypertension: - Continue amlodipine 5 mg daily, Toprol 25 daily, clonidine patch 0.1 mg. Monitor and titrate BP meds Pneumonia: - Has completed course of antibiotics, will hold further abx and monitor Agitation with chronic encephalopathy-improved -Continue Klonopin and Seroquel -Psychiatry consultation appreciated -Patient now off restraints since this morning History of acute kidney injury-resolved -Nephrology following Prophylaxis: Lovenox DC planning: Patient has already been accepted at [facility] sub[facility], patient needs to be off restraints for 24 hours, restraints were taken off this morning and if continues to be off restraints by tomorrow morning then can be discharged Result Diagram: 06/13/18 0622 06/13/18 0622 Results 24hrs Laboratory Tests Test 06/13/18 06:22 White Blood Count 4.5 #L Red Blood Count 4.48 L Hemoglobin 11.9 L Hematocrit 39.5 L Mean Corpuscular Volume 88.2 Mean Corpuscular Hemoglobin 26.6 L Mean Corpuscular Hemoglobin Concent 30.1 L Red Cell Distribution Width 14.8 H Platelet Count 129 #L Mean Platelet Volume Immature Granulocytes % 0.200 Neutrophils % 57.7 Lymphocytes % 25.2 Monocytes % 9.4 Eosinophils % 7.1 H Basophils % 0.4 Nucleated Red Blood Cells % 0.0 Immature Granulocytes # 0.010 Neutrophils # 2.6 Lymphocytes # 1.1 Monocytes # 0.4 Eosinophils # 0.3 Basophils # 0.0 Nucleated Red Blood Cells # 0.0 Sodium Level 143 Potassium Level 4.1 Chloride Level 99 Carbon Dioxide Level 31 Anion Gap 13 Blood Urea Nitrogen 41 H Creatinine 0.78 Est Glomerular Filtrat Rate mL/min > 60 Glucose Level 105 Calcium Level 9.1 Phosphorus Level 4.8 Magnesium Level 2.3 Subjective 24 Hr Interval Summary Constitutional: no complaints Exam/Review of Systems Exam Vitals Vital Signs Date Temp Pulse Resp B/P (MAP) Pulse Ox O2 O2 Flow FiO2 Time Delivery Rate 06/13/18 97.8 82 20 90/53 (65) 94 Trach 11:21 Collar 06/13/18 5.0 08:20 06/13/18 28 07:59 Intake and Output 06/12/18 06/12/18 06/13/18 1515:00 23:00 07:00 IntakeIntake Total 950 ml 1000 ml BalanceBalance 950 ml 1000 ml Constitutional: alert Respiratory: clear to auscultation Cardiovascular: regular rate and rhythm Gastrointestinal: soft; No distended Musculoskeletal: nl extremities to inspection Results Results 24hrs Laboratory Tests Test 06/13/18 06:22 White Blood Count 4.5 #L Red Blood Count 4.48 L Hemoglobin 11.9 L Hematocrit 39.5 L Mean Corpuscular Volume 88.2 Mean Corpuscular Hemoglobin 26.6 L Mean Corpuscular Hemoglobin Concent 30.1 L Red Cell Distribution Width 14.8 H Platelet Count 129 #L Mean Platelet Volume Immature Granulocytes % 0.200 Neutrophils % 57.7 Lymphocytes % 25.2 Monocytes % 9.4 Eosinophils % 7.1 H Basophils % 0.4 Nucleated Red Blood Cells % 0.0 Immature Granulocytes # 0.010 Neutrophils # 2.6 Lymphocytes # 1.1 Monocytes # 0.4 Eosinophils # 0.3 Basophils # 0.0 Nucleated Red Blood Cells # 0.0 Sodium Level 143 Potassium Level 4.1 Chloride Level 99 Carbon Dioxide Level 31 Anion Gap 13 Blood Urea Nitrogen 41 H Creatinine 0.78 Est Glomerular Filtrat Rate mL/min > 60 Glucose Level 105 Calcium Level 9.1 Phosphorus Level 4.8 Magnesium Level 2.3 Medications Medication Current Medications IV Flush (NS 3 ml) 3 ml PER PROTOCOL IV ; Start 06/04/18 at 16:00 Acetaminophen/ Hydrocodone Bitart ([place] (5/325)) 2 tab Q6H PRN PO .SEVERE PAIN 7-10 Last administered on 06/05/18at 04:28; Admin Dose 2 TAB; Start 06/04/18 at 16:00 Amlodipine Besylate (Norvasc) 5 mg DAILY PO Last administered on 06/13/18 08:27; Admin Dose 5 MG; Start 06/05/18 at 09:00 Metoprolol Succinate (Toprol Xl) 25 mg DAILY PO Last administered on 06/13/18 08:27; Admin Dose 25 MG; Start 06/05/18 at 09:00 Ondansetron HCl (Zofran Inj) 4 mg Q6H PRN IV NAUSEA AND/OR VOMITING; Start 06/04/18 at 16:00 Clonidine HCl (Catapres-Tts 1 Patch) 1 patch Q7D TRANSDERM Last administered on 06/12/18 13:07; Admin Dose 1 PATCH; Start 06/05/18 at 13:00 Lorazepam (Ativan) 1 mg Q8H PRN IV ANXIETY Last administered on 06/05/18 12:08; Admin Dose 1 MG; Start 06/05/18 at 11:30 Acetaminophen (Tylenol Tab) 650 mg Q6H PRN PO MILD PAIN(1-3)OR ELEVATED TEMP Last administered on 06/09/18 23:32; Admin Dose 650 MG; Start 06/06/18 at 14:50 Levalbuterol (Xopenex Neb) 0.63 mg Q8H RESP THERAPY HHN Last administered on 06/13/18 07:49; Admin Dose 0.63 MG; Start 06/07/18 at 00:00 Furosemide (Lasix) 20 mg DAILY GTB Last administered on 06/13/18 08:27; Admin Dose 20 MG; Start 06/09/18 at 12:00 Clonazepam (Klonopin) 1 mg BID PO Last administered on 06/13/18 08:26; Admin Dose 1 MG; Start 06/10/18 at 21:00 Quetiapine Fumarate (Seroquel) 50 mg BID GTB Last administered on 06/13/18 08:27; Admin Dose 50 MG; Start 06/12/18 at 21:00 Magnesium Hydroxide (Milk Of Mag) 30 ml DAILY PRN PO CONSTIPATION Last administered on 06/13/18 06:12; Admin Dose 30 ML; Start 06/13/18 at 02:30 LAUREANO STEARNS Jun 13, 2018 12:11
--- NOTE | 2018-06-13 12:15 | CONS ---
Assessment/Plan Assessment/Plan Assessment/Plan 57 yo Male with 1) Acute respiratory failure, S/p trach 2) CHF- significantly improved 3) Hx of B/l PNA S/p Treatment 4) Hx of AGUS with Recovery 5) Pre Renal Azotemia- stable improving BUN Improved, Cr stable, Na improving slowly to goal. Cont low dose lasix Cont free H20 flushes q4hr Acute Rehab placement Consultation Date/Type/Reason Admit Date/Time Jun 04, 2018 at 14:09 Type of Consult Nephrology Date/Time of Note DATE: 06/13/18 TIME: 12:15 Constitutional: requiring O2 Exam/Review of Systems Vital Signs Vitals Vital Signs Date Temp Pulse Resp B/P (MAP) Pulse Ox O2 O2 Flow FiO2 Time Delivery Rate 06/13/18 97.8 82 20 90/53 (65) 94 Trach 11:21 Collar 06/13/18 5.0 08:20 06/13/18 28 07:59 Intake and Output 06/12/18 06/12/18 06/13/18 1515:00 23:00 07:00 IntakeIntake Total 950 ml 1000 ml BalanceBalance 950 ml 1000 ml Exam Constitutional: No distress ENMT: mucosa pink and moist Respiratory: No diminished breath sounds Cardiovascular: edema Gastrointestinal: soft Neurological: lethargic Labs Result Diagram: 06/13/18 0622 06/13/18 0622 Results 24hrs Laboratory Tests Test 06/13/18 06:22 White Blood Count 4.5 #L Red Blood Count 4.48 L Hemoglobin 11.9 L Hematocrit 39.5 L Mean Corpuscular Volume 88.2 Mean Corpuscular Hemoglobin 26.6 L Mean Corpuscular Hemoglobin Concent 30.1 L Red Cell Distribution Width 14.8 H Platelet Count 129 #L Mean Platelet Volume Immature Granulocytes % 0.200 Neutrophils % 57.7 Lymphocytes % 25.2 Monocytes % 9.4 Eosinophils % 7.1 H Basophils % 0.4 Nucleated Red Blood Cells % 0.0 Immature Granulocytes # 0.010 Neutrophils # 2.6 Lymphocytes # 1.1 Monocytes # 0.4 Eosinophils # 0.3 Basophils # 0.0 Nucleated Red Blood Cells # 0.0 Sodium Level 143 Potassium Level 4.1 Chloride Level 99 Carbon Dioxide Level 31 Anion Gap 13 Blood Urea Nitrogen 41 H Creatinine 0.78 Est Glomerular Filtrat Rate mL/min > 60 Glucose Level 105 Calcium Level 9.1 Phosphorus Level 4.8 Magnesium Level 2.3 Medications Medications Current Medications IV Flush (NS 3 ml) 3 ml PER PROTOCOL IV ; Start 06/04/18 at 16:00 Acetaminophen/ Hydrocodone Bitart ([place] (5/325)) 2 tab Q6H PRN PO .SEVERE PAIN 7-10 Last administered on 06/05/18 04:28; Admin Dose 2 TAB; Start 06/04/18 at 16:00 Amlodipine Besylate (Norvasc) 5 mg DAILY PO Last administered on 06/13/18 08:27; Admin Dose 5 MG; Start 06/05/18 at 09:00 Metoprolol Succinate (Toprol Xl) 25 mg DAILY PO Last administered on 06/13/18 08:27; Admin Dose 25 MG; Start 06/05/18 at 09:00 Ondansetron HCl (Zofran Inj) 4 mg Q6H PRN IV NAUSEA AND/OR VOMITING; Start 06/04/18 at 16:00 Clonidine HCl (Catapres-Tts 1 Patch) 1 patch Q7D TRANSDERM Last administered on 06/12/18 13:07; Admin Dose 1 PATCH; Start 06/05/18 at 13:00 Lorazepam (Ativan) 1 mg Q8H PRN IV ANXIETY Last administered on 06/05/18 12:08; Admin Dose 1 MG; Start 06/05/18 at 11:30 Acetaminophen (Tylenol Tab) 650 mg Q6H PRN PO MILD PAIN(1-3)OR ELEVATED TEMP Last administered on 06/09/18 23:32; Admin Dose 650 MG; Start 06/06/18 at 14:50 Levalbuterol (Xopenex Neb) 0.63 mg Q8H RESP THERAPY HHN Last administered on 06/13/18 07:49; Admin Dose 0.63 MG; Start 06/07/18 at 00:00 Furosemide (Lasix) 20 mg DAILY GTB Last administered on 06/13/18 08:27; Admin Dose 20 MG; Start 06/09/18 at 12:00 Clonazepam (Klonopin) 1 mg BID PO Last administered on 06/13/18 08:26; Admin Dose 1 MG; Start 06/10/18 at 21:00 Quetiapine Fumarate (Seroquel) 50 mg BID GTB Last administered on 06/13/18at 08:27; Admin Dose 50 MG; Start 06/12/18 at 21:00 Magnesium Hydroxide (Milk Of Mag) 30 ml DAILY PRN PO CONSTIPATION Last administered on 06/13/18at 06:12; Admin Dose 30 ML; Start 06/13/18 at 02:30 CHRIS SALAZAR MD Jun 13, 2018 12:15
--- NOTE | 2018-06-13 15:32 | CONS ---
Consult Date/Type/Reason Admit Date/Time Jun 04, 2018 at 14:09 Initial Consult Date 06/05/18 Type of Consult Pulmonary Requesting Provider: LAUREANO STEARNS Date/Time of Note DATE: 06/13/18 TIME: 15:31 Subjective Still agitated requiring restraints. Objective Vital Signs Date Temp Pulse Resp B/P (MAP) Pulse Ox O2 O2 Flow FiO2 Time Delivery Rate 06/13/18 97.5 88 20 94/63 (73) 97 Trach 15:04 Collar 06/13/18 5.0 08:20 06/13/18 28 07:59 Intake and Output 06/12/18 06/12/18 06/13/18 1515:00 23:00 07:00 IntakeIntake Total 950 ml 1000 ml BalanceBalance 950 ml 1000 ml Exam GENERAL: trach peg. VITAL SIGNS: per chart NECK: Supple. No JVD or lymphadenopathy. CARDIAC EXAM: S1, S2. No added sounds or murmurs. CHEST: few rales. ABDOMEN: Soft, nontender. No guarding or rebound. EXTREMITIES: No cyanosis, clubbing or edema. NEUROLOGIC: Generalized weakness Vent Setting Fraction of Inspired Oxygen pe: 28 Results/Medications Result Diagram: 06/13/18 0622 06/13/18 0622 Results 24 hrs Laboratory Tests Test 06/13/18 06:22 White Blood Count 4.5 #L Red Blood Count 4.48 L Hemoglobin 11.9 L Hematocrit 39.5 L Mean Corpuscular Volume 88.2 Mean Corpuscular Hemoglobin 26.6 L Mean Corpuscular Hemoglobin Concent 30.1 L Red Cell Distribution Width 14.8 H Platelet Count 129 #L Mean Platelet Volume Immature Granulocytes % 0.200 Neutrophils % 57.7 Lymphocytes % 25.2 Monocytes % 9.4 Eosinophils % 7.1 H Basophils % 0.4 Nucleated Red Blood Cells % 0.0 Immature Granulocytes # 0.010 Neutrophils # 2.6 Lymphocytes # 1.1 Monocytes # 0.4 Eosinophils # 0.3 Basophils # 0.0 Nucleated Red Blood Cells # 0.0 Sodium Level 143 Potassium Level 4.1 Chloride Level 99 Carbon Dioxide Level 31 Anion Gap 13 Blood Urea Nitrogen 41 H Creatinine 0.78 Est Glomerular Filtrat Rate mL/min > 60 Glucose Level 105 Calcium Level 9.1 Phosphorus Level 4.8 Magnesium Level 2.3 Medications Current Medications IV Flush (NS 3 ml) 3 ml PER PROTOCOL IV ; Start 06/04/18 at 16:00 Acetaminophen/ Hydrocodone Bitart ([place] (5/325)) 2 tab Q6H PRN PO .SEVERE PAIN 7-10 Last administered on 06/05/18 04:28; Admin Dose 2 TAB; Start 06/04/18 at 16:00 Amlodipine Besylate (Norvasc) 5 mg DAILY PO Last administered on 06/13/18 08:27; Admin Dose 5 MG; Start 06/05/18 at 09:00 Metoprolol Succinate (Toprol Xl) 25 mg DAILY PO Last administered on 06/13/18 08:27; Admin Dose 25 MG; Start 06/05/18 at 09:00 Ondansetron HCl (Zofran Inj) 4 mg Q6H PRN IV NAUSEA AND/OR VOMITING; Start 06/04/18 at 16:00 Clonidine HCl (Catapres-Tts 1 Patch) 1 patch Q7D TRANSDERM Last administered on 06/12/18 13:07; Admin Dose 1 PATCH; Start 06/05/18 at 13:00 Lorazepam (Ativan) 1 mg Q8H PRN IV ANXIETY Last administered on 06/05/18 12:08; Admin Dose 1 MG; Start 06/05/18 at 11:30 Acetaminophen (Tylenol Tab) 650 mg Q6H PRN PO MILD PAIN(1-3)OR ELEVATED TEMP Last administered on 06/09/18 23:32; Admin Dose 650 MG; Start 06/06/18 at 14:50 Levalbuterol (Xopenex Neb) 0.63 mg Q8H RESP THERAPY HHN Last administered on 06/13/18 07:49; Admin Dose 0.63 MG; Start 06/07/18 at 00:00 Furosemide (Lasix) 20 mg DAILY GTB Last administered on 06/13/18 08:27; Admin Dose 20 MG; Start 06/09/18 at 12:00 Clonazepam (Klonopin) 1 mg BID PO Last administered on 06/13/18 08:26; Admin Dose 1 MG; Start 06/10/18 at 21:00 Quetiapine Fumarate (Seroquel) 50 mg BID GTB Last administered on 06/13/18 08:27; Admin Dose 50 MG; Start 06/12/18 at 21:00 Magnesium Hydroxide (Milk Of Mag) 30 ml DAILY PRN PO CONSTIPATION Last administered on 06/13/18at 06:12; Admin Dose 30 ML; Start 06/13/18 at 02:30 Assessment/Plan Hospital Course (Demo Recall) IMP: 1. Chronic Respiratory Failure s/p tracheotomy 2. History of Multilobar pneumonia --now with copious secretions 3. HFpEF 4. s/p AGUS 5. Encephalopathy--likely toxic-metabolic RECS: 1. Aggressive CPT/suctioning 2. Bronchodilators 3. Cont trach collar 4. ST eval; eventual PMV 5. Dietary consult 6. DVT prophylaxis 7. s/p PEG placement. 8. Seroquel for agitation psych recommendations dc planning. MARIO HARMON MD, [facility] Jun 13, 2018 15:32
[2018-06-13] MEDS ORDERED: ALTEPLASE (CATHFLO) 2 MG INJ CATHETER ONE (22:00)
[2018-06-13] MEDS ORDERED: ALTEPLASE (CATHFLO) 2 MG INJ CATHETER PRN (22:00)
[2018-06-14] VITALS (9 sets, daily range): BP systolic 90–106; BP diastolic 55–66; PULSE 75–87; RESP 18–20
[2018-06-14] MEDS: METOPROLOL (XL) 25 MG TAB PO SCH (08:21)
[2018-06-14] MEDS: QUETIAPINE 25 MG TAB GTB SCH (08:21)
[2018-06-14] MEDS: clonAZEPAM 0.5 MG TAB PO SCH (08:21)
[2018-06-14] MEDS: MAGNESIUM HYDROXIDE 30ML CUP PO PRN (08:21)
[2018-06-14] MEDS: AMLODIPINE 5 MG TAB PO SCH (08:22)
[2018-06-14] MEDS: FUROSEMIDE 20 MG TAB GTB SCH (08:22)
[2018-06-14] MEDS: LEVALBUTEROL (NEB) 0.63 MG/3 ML AMP HHN SCH ×2 (08:51→17:57)
--- NOTE | 2018-06-14 09:40 | PDOCDIS ---
Discharge Instructions CONDITION [id number] Patient Condition: [id number] MATTHEW Baez Jun 14, 2018 09:40
--- NOTE | 2018-06-14 09:45 | DS ---
Date/Time of Note Date/Time of Note DATE: 06/14/18 TIME: 09:41 Discharge Summary Admission/Discharge Info Admit Date/Time Jun 04, 2018 at 14:09 Discharge Date/Time Discharge Diagnosis Acute respiratory failure: - s/p tracheostomy Dysphagia: -PEG tube now placed Diastolic CHF: - Continue lasix 20 mg p.o. now Hypertension: Pneumonia- Has completed course of antibiotics, resolved Agitation with chronic encephalopathy-improved History of acute kidney injury-resolved Patient Condition: Stable Procedures 2D echo June 05, 2018: Conclusions: Normal left ventricular systolic function. Normal left ventricular cavity size. Normal left ventricular wall thickness. Mild concentric left ventricular hypertrophy. Ejection fraction is visually estimated at 55 %. Normal appearance of the mitral valve. Trace mitral regurgitation. Normal appearance of the tricuspid valve. Unable to obtain RVSP due to minimal presence of tricuspid regurgitation. Hx of Present Illness 57 yo male with h/o diastolic CHF, MAC/OHS, hypertension who is transferred from [facility] for management of respiratory failure. He was admitted there on 05/04 with respiratory failure requriing intubation. From documentation provided it seemst his was due to combination of congestive heart failure as well as pneumoina. He completed a course of vancomycin and aztreonam and underwent diuresis. TTE showed EF 55%. He eventually required tracheostomy. He has been stable off the venitlator since then and is now on trach collar. He has not passed swallow evaluation. He has been transferred here now for consideration of possible PEG placement and further speech therapy\ Seen on the floor by me after arrival. he is comfortable without complaints. Hospital Course Thus patient was admitted. Seen by different specialists during this hospital stay including cardiology, pulmonary, renal, psychiatry, and GI teams. Patient was treated for his upper respiratory infection with antibiotics and he tolerated these well and completed the treatment. He also was treated for CHF exacerbation with diuresis including IV Lasix, this is been switched back to p.o. Lasix. He also received PEG placement by GI team. Over the course of his hospital stay his vital signs remained stable on the day of discharge. He was tolerating tube feeding. He is back at his baseline status. He was also treated for his psychiatric issues after being seen by psychiatry team. His renal function was stable on the day of discharge. He will be [facility] later today in improved condition. See printed medical reconciliation sheet for full list of discharge medications. Primary Care Provider Not On Staff Doctor Time spent on discharge: > 30 minutes Pending Labs Laboratory Tests Test 06/14/18 08:24 Lab Scanned Report REFER[facility] LAB [id number] MATTHEW BOLAND Jun 14, 2018 09:45
--- NOTE | 2018-06-14 11:34 | CONS ---
Assessment/Plan Assessment/Plan Assessment/Plan 57 yo Male with 1) Acute respiratory failure, S/p trach 2) CHF- significantly improved 3) Hx of B/l PNA S/p Treatment 4) Hx of AGUS with Recovery 5) Pre Renal Azotemia- stable improving BUN Improved, Cr stable, Na improving slowly to goal. Cont low dose lasix Cont free H20 flushes q4hr Acute Rehab placement Consultation Date/Type/Reason Admit Date/Time Jun 04, 2018 at 14:09 Type of Consult Nephrology Date/Time of Note DATE: 06/14/18 TIME: 11:33 Exam/Review of Systems Vital Signs Vitals Vital Signs Date Temp Pulse Resp B/P (MAP) Pulse Ox O2 O2 Flow FiO2 Time Delivery Rate 06/14/18 98.0 87 19 104/66 96 11:31 (79) 06/14/18 5.0 28 08:52 06/14/18 Aerosol 06:30 Intake and Output 06/13/18 06/13/18 06/14/18 1515:00 23:00 07:00 IntakeIntake Total 1220 ml BalanceBalance 1220 ml Labs Result Diagram: 06/13/1862106/13/18621 Results 24hrs Laboratory Tests Test 06/14/18 08:24 Lab Scanned Report REFERENCE LAB Medications Medications Current Medications IV Flush (NS 3 ml) 3 ml PER PROTOCOL IV ; Start 06/04/18 at 16:00 Acetaminophen/ Hydrocodone Bitart ([place] (5/325)) 2 tab Q6H PRN PO .SEVERE PAIN 7-10 Last administered on 06/05/18at 04:28; Admin Dose 2 TAB; Start 06/04/18 at 16:00 Amlodipine Besylate (Norvasc) 5 mg DAILY PO Last administered on 06/13/18at 08:27; Admin Dose 5 MG; Start 06/05/18 at 09:00 Metoprolol Succinate (Toprol Xl) 25 mg DAILY PO Last administered on 06/13/18at 08:27; Admin Dose 25 MG; Start 06/05/18 at 09:00 Ondansetron HCl (Zofran Inj) 4 mg Q6H PRN IV NAUSEA AND/OR VOMITING; Start 06/04/18 at 16:00 Clonidine HCl (Catapres-Tts 1 Patch) 1 patch Q7D TRANSDERM Last administered on 06/12/18 13:07; Admin Dose 1 PATCH; Start 06/05/18 at 13:00 Lorazepam (Ativan) 1 mg Q8H PRN IV ANXIETY Last administered on 06/05/18 12:08; Admin Dose 1 MG; Start 06/05/18 at 11:30 Acetaminophen (Tylenol Tab) 650 mg Q6H PRN PO MILD PAIN(1-3)OR ELEVATED TEMP Last administered on 06/09/18 23:32; Admin Dose 650 MG; Start 06/06/18 at 14:50 Levalbuterol (Xopenex Neb) 0.63 mg Q8H RESP THERAPY HHN Last administered on 06/14/18 08:51; Admin Dose 0.63 MG; Start 06/07/18 at 00:00 Furosemide (Lasix) 20 mg DAILY GTB Last administered on 06/14/18 08:22; Admin Dose 20 MG; Start 06/09/18 at 12:00 Clonazepam (Klonopin) 1 mg BID PO Last administered on 06/14/18 08:21; Admin Dose 1 MG; Start 06/10/18 at 21:00 Quetiapine Fumarate (Seroquel) 50 mg BID GTB Last administered on 06/14/18 08:21; Admin Dose 50 MG; Start 06/12/18 at 21:00 Magnesium Hydroxide (Milk Of Mag) 30 ml DAILY PRN PO CONSTIPATION Last administered on 06/14/18 08:21; Admin Dose 30 ML; Start 06/13/18 at 02:30 Alteplase, Recombinant (Cathflo (Activase)) 2 mg MAY REPEAT X1 PRN CATHETER IF CATHETER REMAINS OCCULUDED; Start 06/13/18 at 22:00 CHRIS SALAZAR MD Jun 14, 2018 11:34
--- NOTE | 2018-06-14 15:04 | CONS ---
Consult Date/Type/Reason Admit Date/Time Jun 04, 2018 at 14:09 Initial Consult Date 06/05/18 Type of Consult Pulmonary Requesting Provider: LAUREANO STEARNS Date/Time of Note DATE: 06/14/18 TIME: 15:04 Subjective Restraints comfortable no respiratory distress Objective Vital Signs Date Temp Pulse Resp B/P (MAP) Pulse Ox O2 O2 Flow FiO2 Time Delivery Rate 06/14/18 85 12:13 06/14/18 98.0 19 104/66 96 11:31 (79) 06/14/18 5.0 28 08:52 06/14/18 Aerosol 06:30 Intake and Output 06/13/18 06/13/18 06/14/18 1414:59 22:59 06:59 IntakeIntake Total 1220 ml BalanceBalance 1220 ml Exam Exam GENERAL: trach peg. VITAL SIGNS: per chart NECK: Supple. No JVD or lymphadenopathy. CARDIAC EXAM: S1, S2. No added sounds or murmurs. CHEST: few rales. ABDOMEN: Soft, nontender. No guarding or rebound. EXTREMITIES: No cyanosis, clubbing or edema. NEUROLOGIC: Generalized weakness Vent Setting Fraction of Inspired Oxygen pe: 28 Results/Medications Result Diagram: 06/13/1862106/13/18621 Results 24 hrs Laboratory Tests Test 06/14/18 08:24 Lab Scanned Report [facility] LAB Medications Current Medications IV Flush (NS 3 ml) 3 ml PER PROTOCOL IV ; Start 06/04/18 at 16:00 Acetaminophen/ Hydrocodone Bitart ([place] (5/325)) 2 tab Q6H PRN PO .SEVERE PAIN 7-10 Last administered on 06/05/18at 04:28; Admin Dose 2 TAB; Start 06/04/18 at 16:00 Amlodipine Besylate (Norvasc) 5 mg DAILY PO Last administered on 06/13/18at 08:27; Admin Dose 5 MG; Start 06/05/18 at 09:00 Metoprolol Succinate (Toprol Xl) 25 mg DAILY PO Last administered on 06/13/18at 08:27; Admin Dose 25 MG; Start 06/05/18 at 09:00 Ondansetron HCl (Zofran Inj) 4 mg Q6H PRN IV NAUSEA AND/OR VOMITING; Start 06/04/18 at 16:00 Clonidine HCl (Catapres-Tts 1 Patch) 1 patch Q7D TRANSDERM Last administered on 06/12/18 13:07; Admin Dose 1 PATCH; Start 06/05/18 at 13:00 Lorazepam (Ativan) 1 mg Q8H PRN IV ANXIETY Last administered on 06/05/18 12:08; Admin Dose 1 MG; Start 06/05/18 at 11:30 Acetaminophen (Tylenol Tab) 650 mg Q6H PRN PO MILD PAIN(1-3)OR ELEVATED TEMP Last administered on 06/09/18 23:32; Admin Dose 650 MG; Start 06/06/18 at 14:50 Levalbuterol (Xopenex Neb) 0.63 mg Q8H RESP THERAPY HHN Last administered on 06/14/18 08:51; Admin Dose 0.63 MG; Start 06/07/18 at 00:00 Furosemide (Lasix) 20 mg DAILY GTB Last administered on 06/14/18 08:22; Admin Dose 20 MG; Start 06/09/18 at 12:00 Clonazepam (Klonopin) 1 mg BID PO Last administered on 06/14/18 08:21; Admin Dose 1 MG; Start 06/10/18 at 21:00 Quetiapine Fumarate (Seroquel) 50 mg BID GTB Last administered on 06/14/18 08:21; Admin Dose 50 MG; Start 06/12/18 at 21:00 Magnesium Hydroxide (Milk Of Mag) 30 ml DAILY PRN PO CONSTIPATION Last administered on 06/14/18 08:21; Admin Dose 30 ML; Start 06/13/18 at 02:30 Alteplase, Recombinant (Cathflo (Activase)) 2 mg MAY REPEAT X1 PRN CATHETER IF CATHETER REMAINS OCCULUDED; Start 06/13/18 at 22:00 Assessment/Plan Hospital Course (Demo Recall) IMP: 1. Chronic Respiratory Failure s/p tracheotomy 2. History of Multilobar pneumonia --now with copious secretions 3. HFpEF 4. s/p AGUS 5. Encephalopathy--likely toxic-metabolic RECS: 1. Aggressive CPT/suctioning 2. Bronchodilators 3. Cont trach collar 4. ST eval; eventual PMV 5. Dietary consult 6. DVT prophylaxis 7. s/p PEG placement. 8. Seroquel for agitation psych recommendations dc planning. MARIO HARMON MD, [facility] Jun 14, 2018 15:04
== END 2018-06-14 19:25 | DRG 391 ==
LOC: TEL 06-04 14:09
PROVIDERS: ADMIT Internal Medicine; ATTEND Internal Medicine
PROC: 0DH63UZ Insertion of Feeding Device into Stomach, Percutaneous Approach (ICD-10-PCS; principal; 2018-06-08 17:00)
DX: R13.12 Dysphagia, oropharyngeal phase (principal); J18.9 Pneumonia, unspecified organism; G92 Toxic encephalopathy; I50.33 Acute on chronic diastolic (congestive) heart failure; J96.20 Acute and chronic respiratory failure, unspecified whether with hypoxia or hypercapnia; N17.9 Acute kidney failure, unspecified; I11.0 Hypertensive heart disease with heart failure; R45.1 Restlessness and agitation; Z93.0 Tracheostomy status
CPT/HCPCS: 36600; 71045; 74018; 74230; 80048; 80053; 82803; 83036; 83735; 84100; 85014; 85018; 85025; 85610; 92507; 92526; 92610; 92611; 93306; 93931; 94640; 94664; 97110; 97116; 97162; 97530; J0690; J1650; J1940; J2060; J2997; J7070